=== PATIENT | male | born 1945 | race Caucasian/White ===

== ENCOUNTER 2017-11-30 04:39 | Emergency (ER) | payer OTHER ==
[~2017-11-30] VITALS: Ht 167.6 cm; Wt 75.7 kg
[~2017-11-30 04:39] MED LIST: ALBU0.0939 IH; ASPI81CT89 PO; GLIP10TA3 PO; ISOS10TA9 PO; METO25TA PO; ORE25 PO; POTA10TE31 PO; VAS5 PO
[2017-11-30 04:46] VITALS: BP 145/101
--- NOTE | 2017-11-30 04:54 | NUR ---
PT W/C ASSISTED TO BED 2
--- NOTE | 2017-11-30 04:59 | NUR ---
Dr. Purdy evaluating patient at bedside.
[2017-11-30] MEDS ORDERED: KETOROLAC 60 MG/2 ML VIAL IM ONE (05:00)
--- NOTE | 2017-11-30 05:00 | NUR ---
left hip pain x4 days . DENIES N/V/D; SKIN IS PINK/WARM/DRY;AWAKE, ALERT. LUNGS CLEAR BL; HR EVEN AND REGULAR; PT DENIES ANY FEVER, CP, SOB, OR COUGH AT THIS TIME; PATIENT STATES PAIN OF 10/10 AT THIS TIME; VSS; PATIENT POSITIONED FOR COMFORT; HOB ELEVATED; BEDRAILS UP X2; BED DOWN. ER MD MADE AWARE OF PT STATUS.
--- NOTE | 2017-11-30 05:37 | NUR ---
PT TAKEN TO CT
--- NOTE | 2017-11-30 06:15 | NUR ---
PT STATED PAIN RELIVED.
[2017-11-30 06:52] VITALS: BP 138/90
--- NOTE | 2017-11-30 06:53 | NUR ---
Patient discharged with v/s stable. Written and verbal after care instructions given and explained. Patient alert, oriented and verbalized understanding of instructions. Ambulatory with steady gait. All questions addressed prior to discharge. ID band removed. Patient advised to follow up with PMD. Rx of TRAMADOL AND MOTRIN given. Patient educated on indication of medication including possible reaction and side effects. Opportunity to ask questions provided and answered.
== END 2017-11-30 06:53 | disposition home or self-care (01) ==
LOC: MED 04:39
DX: M54.42 Lumbago with sciatica, left side (principal); R03.0 Elevated blood-pressure reading, without diagnosis of hypertension; E11.9 Type 2 diabetes mellitus without complications; Z98.890 Other specified postprocedural states; Z79.899 Other long term (current) drug therapy
CPT/HCPCS: 72192; 96372; 99284; J1885

== ENCOUNTER 2018-06-24 19:20 | Emergency (ER) | payer OTHER ==
[~2018-06-24] VITALS: Ht 167.6 cm; Wt 73.5 kg
[2018-06-24 19:26] VITALS: BP 158/90
--- NOTE | 2018-06-24 19:30 | NUR ---
PT AMBULATED TO LOBBY WITH VSS.
--- NOTE | 2018-06-24 20:39 | NUR ---
PT AMBULATED TO BED 11.
[2018-06-24] MEDS ORDERED: ALBUTEROL SULFATE/IPRATROPIU 3 ML SOL IH ONE (21:05)
--- NOTE | 2018-06-24 21:05 | NUR ---
73 YO M BIB SELF. AMBULATORY W/STEADY GATE. PT STATES TO HAVE HAD THE FLU FOR THE PAST 2 WEEKS. C/O 5/10 BACK PAIN WHEN BREATHING. WHEEZING PRESENT IN ALL QUADRANTS. PT STATES TO HAVE HAD COUGH FOR PAST 2 WEEKS. HX: DIABETES
--- NOTE | 2018-06-24 21:10 | NUR ---
LAB AT BEDSIDE.
--- NOTE | 2018-06-24 21:17 | NUR ---
X-RAY AT BEDSIDE.
[2018-06-24 21:18] LABS: BASOPHILS # (AUTO) 0.1 K/uL (0.00-0.22); BASOPHILS % (AUTO) 0.9 % (0.0-2.0); EOSINOPHILS # (AUTO) 0.4 K/uL (0-0.4); EOSINOPHILS % (AUTO) 5.6 % (0.0-4.0); HEMATOCRIT 44.1 % (36-52); HEMOGLOBIN 14.5 g/dL (12.0-18.0); LYMPHOCYTES % (AUTO) 24.8 % (20.5-51.1); MEAN CORPUSCULAR HEMOGLOBIN 31 pg (27-31); MEAN CORPUSCULAR HGB CONC 33 g/dL (33-37); MEAN CORPUSCULAR VOLUME 94.3 fL (80-94); MONOCYTES # (AUTO) 0.7 K/uL (0.8-1.0); MONOCYTES % (AUTO) 8.6 % (1.7-9.3); NEUTROPHILS # (AUTO) 4.7 K/uL (1.8-7.7); NEUTROPHILS % (AUTO) 60.1 % (42.2-75.2); PLATELET COUNT (AUTO) 156 K/uL (140-450); RED BLOOD CELL COUNT(AUTO) 4.68 MIL/uL (4.20-6.10); RED CELL DISTRIBUTION WIDTH 14.6 % (11.6-13.7); WHITE BLOOD COUNT (AUTO) 7.9 K/uL (4.8-10.8)
[2018-06-24 21:38] LABS: ANION GAP 11.4 (8-16); CARBON DIOXIDE 27.6 mmol/L (21-32); CHLORIDE 103 mmol/L (98-107); CREATININE 0.8 mg/dL (0.7-1.3); GLUCOSE 175 mg/dL (74-106); SODIUM SERUM 138 mmol/L (136-145); UREA NITROGEN, BLOOD 6 mg/dL (7-18)
--- NOTE | 2018-06-24 21:40 | NUR ---
RT AT BEDSIDE FOR TX.
[2018-06-24 21:44] LABS: ALBUMIN 3.6 g/dL (3.4-5.0); ASPARTATE AMINOTRANSFERASE 64 U/L (15-37); TOTAL BILIRUBIN 0.4 mg/dL (0.0-1.0)
[2018-06-24 22:13] VITALS: BP 141/88
--- NOTE | 2018-06-24 22:14 | NUR ---
Patient discharged with v/s stable. Written and verbal after care instructions given and explained. Patient alert, oriented and verbalized understanding of instructions. Ambulatory with steady gait. All questions addressed prior to discharge. ID band removed. Patient advised to follow up with PMD. Rx of TESSALON PERLES 200MG, LEVAQUIN 500, ALBUTEROL 90MCG given. Patient educated on indication of medication including possible reaction and side effects. Opportunity to ask questions provided and answered.
== END 2018-06-24 22:13 | disposition home or self-care (01) ==
LOC: MED 19:20
DX: J18.1 Lobar pneumonia, unspecified organism (principal); E11.9 Type 2 diabetes mellitus without complications; Z98.890 Other specified postprocedural states; Z79.84 Long term (current) use of oral hypoglycemic drugs; Z79.82 Long term (current) use of aspirin; Z79.899 Other long term (current) drug therapy
CPT/HCPCS: 36415; 71045; 80053; 85025; 93005; 94640; 94760; 99284; J7620

== ENCOUNTER 2018-06-28 22:35 | Inpatient (IN) | payer OTHER ==
[~2018-06-28] VITALS: Ht 167.6 cm; Wt 76.2 kg
[2018-06-28 22:44] VITALS: BP 141/73
--- NOTE | 2018-06-28 23:00 | NUR ---
BIB SELF C/O SOB TONIGHT AND COUGH X2 WEEKS, RR EVEN AND UNLABORED, BL UPPER LOBES WHEEZES NOTED ON EXPIRATION. PT SITTING IN BED, IN NO ACUTE RESPIRATORY DISTRESS, WILL CONTINUE TO MONITOR. PMH DM
--- NOTE | 2018-06-28 23:20 | NUR ---
Dr. Carrington evaluating patient at bedside.
[2018-06-28] MEDS ORDERED: DEXAMETHASONE 10 MG/ML VIAL IVP ONE (23:25)
[2018-06-28] MEDS ORDERED: ALBUTEROL 0.083% 2.5 MG/3 ML NEBU INH ONE (23:25)
[2018-06-28] MEDS ORDERED: IPRATROPIUM 0.02% 0.5 MG/2.5 ML NEBU INH ONE (23:25)
[2018-06-28] MEDS ORDERED: NACL 0.9% 1,000 ML IV ONE (23:25)
--- NOTE | 2018-06-28 23:27 | NUR ---
X-Ray at bedside.
--- NOTE | 2018-06-28 23:32 | NUR ---
Respiratory Therapist at bedside for respiratory intervention.
--- NOTE | 2018-06-28 23:37 | NUR ---
ADMITTING DX: SOB LOC AWAKE AND ALERT RESPONSIVE TO MANAGER HOME HEALTHCARE VERBAL COMMANDS HFW POSITION EDUCATION PROVIDED TO PATIENT WITH ACKNOWLEDGEMENT ON HHN THERAPY AND RESPIRATORY DRUGS ENCOURAGED PATIENT FOR INTERMITTENT DEEP BREATHING DURINGH THERAPY TOLERATED THERAPY WELL WITHOUT INCIDENT
[2018-06-29 00:05] LABS: BASOPHILS # (AUTO) 0.1 K/uL (0.00-0.22); BASOPHILS % (AUTO) 1.2 % (0.0-2.0); EOSINOPHILS # (AUTO) 0.8 K/uL (0-0.4); EOSINOPHILS % (AUTO) 12.1 % (0.0-4.0); HEMOGLOBIN 14.4 g/dL (12.0-18.0); LYMPHOCYTES # (AUTO) 1.5 K/uL (2.0-11.5); LYMPHOCYTES % (AUTO) 24.3 % (20.5-51.1); MEAN CORPUSCULAR HEMOGLOBIN 31 pg (27-31); MEAN CORPUSCULAR HGB CONC 33 g/dL (33-37); MEAN CORPUSCULAR VOLUME 94.2 fL (80-94); MONOCYTES # (AUTO) 0.5 K/uL (0.8-1.0); MONOCYTES % (AUTO) 8.4 % (1.7-9.3); NEUTROPHILS # (AUTO) 3.4 K/uL (1.8-7.7); PLATELET COUNT (AUTO) 147 K/uL (140-450); RED BLOOD CELL COUNT(AUTO) 4.68 MIL/uL (4.20-6.10); WHITE BLOOD COUNT (AUTO) 6.3 K/uL (4.8-10.8)
[2018-06-29 00:13] LABS: ANION GAP 12.7 (8-16); CARBON DIOXIDE 30.4 mmol/L (21-32); CHLORIDE 98 mmol/L (98-107); GLUCOSE 291 mg/dL (74-106); POTASSIUM 4.1 mmol/L (3.5-5.1); SODIUM SERUM 137 mmol/L (136-145); UREA NITROGEN, BLOOD 19 mg/dL (7-18)
[2018-06-29 00:19] LABS: ALBUMIN 3.8 g/dL (3.4-5.0); ASPARTATE AMINOTRANSFERASE 32 U/L (15-37); TOTAL BILIRUBIN 0.9 mg/dL (0.0-1.0)
[2018-06-29] MEDS ORDERED: VANCOMYCIN 1,000 MG in DEXTROSE 5% 250 ML IV ONE (01:15)
[2018-06-29] MEDS ORDERED: PIPERACILLIN/TAZOBACTAM 3.375 GM in DEXTROSE 5% 50 ML IV ONE (01:15)
[2018-06-29] MEDS ORDERED: VANCOMYCIN 1,000 MG VIAL ONE (01:58)
[2018-06-29] MEDS ORDERED: PIPERACILLIN/TAZOBACTAM 3.375 GM VIAL IV ONE (01:58)
--- NOTE | 2018-06-29 02:10 | NUR ---
PT IN BED , ON PHONE, VSS, PENDING ADMISSION .
[2018-06-29] MEDS ORDERED: ACETAMINOPHEN 325 MG TAB PO PRN (03:05)
[2018-06-29] MEDS ORDERED: ONDANSETRON 4 MG/2 ML VIAL IM/IVP PRN (03:05)
[2018-06-29] MEDS ORDERED: HYDROcodone/APAP 7.5/325 MG 1 TAB PO PRN (03:05)
[2018-06-29] MEDS ORDERED: DOCUSATE SODIUM 100 MG GELCAP PO PRN (03:05)
--- NOTE | 2018-06-29 03:30 | NUR ---
Patient will be admitted to care of DR CARTER . Admited to TELE. Will go to [id number]. Belongings list completed. Report to ANA PAULA CORTES.
--- NOTE | 2018-06-29 03:30 | NUR ---
RECEIVED REPORT FROM DATA MANAGEMENTANA PAULA VUONG FOR CONTINUITY OF CARE. PT IS A/OX4, ON ROOM AIR, JAPANESE SPEAKING. PT IS ABLE TO MAKE NEEDS KNOWN, ABLE TO FOLLOW COMMANDS. PT AMBULATES WITH CANE, AND SKIN IS INTACT. PT HAS A 18G IV TO LEFT FOREARM, ASYMPTOMATIC AND INTACT. DISCUSSED PLAN OF CARE WITH PT. OBTAINED MRSA SWAB AND SENT TO LAB. VITAL SIGNS WITHIN NORMAL LIMITS. PT STABLE, DENIES PAIN, NO SIGNS OF DISTRESS NOTED AT THIS TIME. PT POSITIONED FOR COMFORT. BED IN LOWEST POSITION, BED ALARM ON. CALL LIGHT WITHIN REACH, WILL CONTINUE TO MONITOR.
[2018-06-29 03:55] LABS: APPEARANCE,URINE CLEAR (CLEAR); BILIRUBIN,URINE NEGATIVE (NEGATIVE); BLOOD, URINE NEGATIVE (NEGATIVE); COLOR,URINE YELLOW (YELLOW); LEUKOCYTE ESTERASE ,URINE NEGATIVE (NEGATIVE); NITRITE, URINE NEGATIVE (NEGATIVE); PH,URINE 6.5 (5.0-9.0); UGLUCOSE 3+ (NEGATIVE)
[2018-06-29 03:56] LABS: MAGNESIUM 1.7 mg/dL (1.8-2.4); PHOSPHORUS 3.1 mg/dL (2.5-4.9); THYROID STIMULATING HORMONE 1.5 uIU/mL (0.34-3.74)
[2018-06-29 03:56] LABS: RBC,URINE 0-5 (RARE) /HPF (0-5); WBC,URINE 0-5 (RARE) /HPF (0-5)
[2018-06-29 04:06] LABS: PROTHROMBIN TIME 10.4 secs (10.8-13.4)
[2018-06-29] MEDS ORDERED: PROMETH/CODEINE 6.25-10MG/5ML 5 ML UDC PO PRN (04:15)
[2018-06-29] MEDS ORDERED: DEXTROSE 50% 50 ML SYR IVP PRN (04:15)
[2018-06-29] MEDS ORDERED: MAGNESIUM OXIDE 400 MG TAB PO SCH (04:25)
[2018-06-29 04:30] VITALS: BP 133/81
[2018-06-29] MEDS: NACL 0.9% 1,000 ML IV SCH ×2 (05:45→17:22)
--- NOTE | 2018-06-29 05:45 | NUR ---
PT C/O THROAT PAIN 12/07 AND REQUESTED "INJECTION FOR PAIN." OFFERED NORCO FOR PAIN LEVEL ORDERED AND PT TOOK IT. PT TOLERATED WELL.
[2018-06-29] MEDS: BLOOD GLUCOSE MONITORING 1 DEV DEV FS SCH ×4 (06:08→21:08)
[2018-06-29] MEDS: INSULIN LISPRO SLIDING SCALE 100 UNITS/ML VIAL SUBQ PRN ×4 (06:09→21:09)
--- NOTE | 2018-06-29 06:15 | NUR ---
ADMINISTERED 10 UNITS OF HUMALOG INSULIN COVERAGE FOR BLOOD SUGAR 358, PT TOLERATED WELL.
--- NOTE | 2018-06-29 07:05 | NUR ---
ENDORSED PT TO RN SITAL FOR CONTINUITY OF CARE. PT IN STABLE CONDITION.
[2018-06-29 07:06] LABS: BASOPHILS % (AUTO) 0.6 % (0.0-2.0); EOSINOPHILS % (AUTO) 0.2 % (0.0-4.0); HEMATOCRIT 41.7 % (36-52); HEMOGLOBIN 13.8 g/dL (12.0-18.0); LYMPHOCYTES # (AUTO) 0.5 K/uL (2.0-11.5); LYMPHOCYTES % (AUTO) 7.9 % (20.5-51.1); MEAN CORPUSCULAR HEMOGLOBIN 31 pg (27-31); MEAN CORPUSCULAR HGB CONC 33 g/dL (33-37); MEAN CORPUSCULAR VOLUME 94.5 fL (80-94); MONOCYTES # (AUTO) 0.1 K/uL (0.8-1.0); MONOCYTES % (AUTO) 1.1 % (1.7-9.3); NEUTROPHILS # (AUTO) 5.3 K/uL (1.8-7.7); NEUTROPHILS % (AUTO) 90.2 % (42.2-75.2); PLATELET COUNT (AUTO) 127 K/uL (140-450); RED BLOOD CELL COUNT(AUTO) 4.42 MIL/uL (4.20-6.10); RED CELL DISTRIBUTION WIDTH 14.6 % (11.6-13.7); WHITE BLOOD COUNT (AUTO) 5.8 K/uL (4.8-10.8)
--- NOTE | 2018-06-29 07:06 | NUR ---
RECEIVED REPORT FROM PM NURSE AT BEDSIDE. PT UP AND SITTING ON HIS BED. PT NEW ZEALANDER SPEAKING ONLY, UNDERSTAND BELARUSIAN SLIGHTLY. PT WALKS WITH AID OF CANE. PLACED CALL LIGHT WITHIN PT REACH. INFORMED TO USE CA,L LIGHT FOR ANY HELP. PT HAS IV ACCESS ON HIS LEFT HAND 18 G, IVF INFUSING AT 70 ML/HR. TOLERATING WELL. UPDATED BOARD AND INTRODUCED SELF. SPECIMEN CUP AT BEDSIDE. INFORMED TO COLLECT THE SPUTUM WHENEVER PT CAN. VERBALIZED UNDERSTANDING. WILL CONTINUE TO MONITOR PT.
[2018-06-29 07:13] LABS: ANION GAP 15.1 (8-16); CARBON DIOXIDE 24.1 mmol/L (21-32); CHLORIDE 99 mmol/L (98-107); CREATININE 0.9 mg/dL (0.7-1.3); GLUCOSE 374 mg/dL (74-106); POTASSIUM 4.2 mmol/L (3.5-5.1); SODIUM SERUM 134 mmol/L (136-145); UREA NITROGEN, BLOOD 16 mg/dL (7-18)
[2018-06-29 08:00] VITALS: BP 114/69
[2018-06-29] MEDS ORDERED: metFORMIN 850 MG TAB PO SCH (08:00)
[2018-06-29] MEDS: BUDESONIDE 0.5 MG/2 ML NEBU INH SCH ×2 (08:12→19:35)
[2018-06-29] MEDS: ALBUTEROL SULFATE/IPRATROPIU 3 ML SOL IH SCH ×3 (08:12→19:35)
[2018-06-29] MEDS ORDERED: methylPREDNISolone SS 125 MG/2 ML VIAL IVP SCH (08:20)
[2018-06-29] MEDS ORDERED: ALBUTEROL SULFATE/IPRATROPIU 3 ML SOL IH PRN (08:20)
[2018-06-29] MEDS: LACTOBACILLUS RHAMNOSUS GG 1 EACH CAP PO SCH (08:55)
[2018-06-29] MEDS: ASPIRIN 81 MG TAB.CHEW PO SCH (08:55)
[2018-06-29] MEDS: ATORVASTATIN 20 MG TAB PO SCH (08:56)
[2018-06-29] MEDS ORDERED: metFORMIN 500 MG TAB PO SCH (08:59)
[2018-06-29] MEDS ORDERED: PANTOPRAZOLE 40 MG TABEC PO SCH (09:00)
[2018-06-29] MEDS ORDERED: ENALAPRIL 5 MG TAB PO SCH (09:00)
[2018-06-29] MEDS ORDERED: HYDROCHLOROTHIAZIDE 25 MG TAB PO SCH (09:00)
[2018-06-29] MEDS ORDERED: glipiZIDE 10 MG TAB PO SCH (09:00)
[2018-06-29] MEDS ORDERED: ISOSORBIDE DINITRATE 10 MG TAB PO SCH (09:00)
[2018-06-29] MEDS ORDERED: METOPROLOL 25 MG TAB PO SCH (09:00)
--- NOTE | 2018-06-29 09:25 | NUR ---
PATIENT HAS BEEN SCREENED AND CATEGORIZED HIGH NUTRITION RISK. PATIENT WILL BE SEEN WITHIN 1-2 DAYS OF ADMISSION. 06/29/18 06/30/[address]
[2018-06-29] MEDS: PIPER/TAZO 3.375GM/D5W PREMIX 50 ML IV SCH ×3 (09:45→20:43)
--- NOTE | 2018-06-29 09:48 | NUR ---
ADMINISTERED MEDS TO PT ORDERED. TOLERATED WELL. NO SIGN OF DISTRESS NOTED. CALL LIGHT WITHI PT REACH. WILL CONTINUE TO MONITOR PT.
[2018-06-29 12:00] VITALS: BP 115/72
--- NOTE | 2018-06-29 12:00 | NUR ---
CHECKED ON PT. SITTING ON HIS BED. HAS COUGHING . RESIDENT NOTIFIED , WILL PLACE ORDER FOR COUGHING MEDS. PT DENIES ANY PAIN. VS NOTED, BS 369 NOTED, WILL REQUIRE INSULIN COVERAGE. CALL LIGHT WITHIN PT REACH. INFORMED HIM TO USE CALL LIGHT FOR ANY HELP. WILL CONTINUE TO MONITOR PT.
[2018-06-29] MEDS ORDERED: guaiFENesin/CODEINE 100/10MG 5 ML UDC PO PRN (12:45)
[2018-06-29] MEDS: methylPREDNISolone SS 125 MG/2 ML VIAL IVP SCH ×2 (13:20→20:43)
--- NOTE | 2018-06-29 15:07 | NUR ---
CHECKED ON PT. SITTING ON HIS BED. STATES HAS MILD COUGH, FEELING BETTER THAN BEFORE. NO SIGN OF DISTRESS NOTED. CALL LIGHT WITHIN PT REACH. WILL CONTINUE TO MONITOR PT.
[2018-06-29 16:00] VITALS: BP 117/70
[2018-06-29] MEDS: metFORMIN 500 MG TAB PO SCH (16:56)
--- NOTE | 2018-06-29 18:24 | NUR ---
CHECKED ON PT. LYING ON HIS BED, WATCHING TV. CALL LIGHT WITHIN PT REACH. INFORMED TO USE CALL LIGHT FOR ANY HELP. WILL CONTINUE TO MONITOR PT.
--- NOTE | 2018-06-29 19:21 | NUR ---
ENDORSED PT TO PM NURSE AT BESIDE. PT IN STABLE CONDITION.
--- NOTE | 2018-06-29 19:22 | NUR ---
RECEIVED REPORT FROM ANA PAULA CHEUNG FOR CONTINUITY OF CARE. PT IS A/OX4, ON ROOM AIR, BENINESE SPEAKING. PT IS ABLE TO MAKE NEEDS KNOWN, ABLE TO FOLLOW COMMANDS. PT AMBULATES WITH CANE, AND SKIN IS INTACT. PT HAS A 18G IV TO LEFT FOREARM, ASYMPTOMATIC AND INTACT. DISCUSSED PLAN OF CARE WITH PT. VITAL SIGNS WITHIN NORMAL LIMITS. PT STABLE, DENIES PAIN, NO SIGNS OF DISTRESS NOTED AT THIS TIME. PT POSITIONED FOR COMFORT. BED IN LOWEST POSITION, BED ALARM ON. CALL LIGHT WITHIN REACH, WILL CONTINUE TO MONITOR.
[2018-06-29 20:00] VITALS: BP 96/63
--- NOTE | 2018-06-29 20:48 | NUR ---
ADMINISTERED SCHEDULED MEDICATIONS, PT TOLERATED WELL.
--- NOTE | 2018-06-29 22:12 | NUR ---
PT RESTING, PT STATES ALL HIS NEEDS ARE MET AT THIS TIME. NO SIGNS OF DISTRESS NOTED, WILL CONTINUE TO MONITOR.
[2018-06-30] VITALS: BP 99/60
--- NOTE | 2018-06-30 | NUR ---
VITAL SIGNS WITHIN NORMAL LIMITS. PT STABLE, DENIES PAIN, NO SIGNS OF DISTRESS NOTED AT THIS TIME. PT POSITIONED FOR COMFORT. BED IN LOWEST POSITION, BED ALARM ON. CALL LIGHT WITHIN REACH, WILL CONTINUE TO MONITOR.
--- NOTE | 2018-06-30 01:55 | NUR ---
PT IS SHORT OF BREATH AND WHEEZING IS HEARD IN LUNGS. CALLED RT AND PUT PT ON O2. PT SATURATION WAS 95%, SO I ASKED DR DOE IF IT IS OKAY TO KEEP O2 ON BECAUSE PT IS REQUESTING IT. PT SATURATION IS OK BUT IT MAKES HIM FEEL BETTER TO HAVE THE O2, DR DOE SAID IT WAS OK. RT MOISE WILL GIVE PT BREATHING TREATMENT AND THEN PUT HIM ON 0.5L/MIN OF O2.
--- NOTE | 2018-06-30 02:02 | NUR ---
CALLED TO BEDSIDE WITH PT SOB. RN PLACED PT ON 0.5L NC, PT SPO2 97 WITH NC. PT WHEEZING UPON ARRIVAL. GAVE PT PRN TX. PT ELIZABETH TX WELL. WILL CONTINUE TO MONITOR
[2018-06-30 04:00] VITALS: BP 110/60
[2018-06-30] MEDS: methylPREDNISolone SS 125 MG/2 ML VIAL IVP SCH (05:24)
[2018-06-30] MEDS: PIPER/TAZO 3.375GM/D5W PREMIX 50 ML IV SCH (05:25)
--- NOTE | 2018-06-30 05:30 | NUR ---
ADMINISTERED SCHEDULED MEDICATIONS, PT TOLERATED WELL.
[2018-06-30] MEDS: INSULIN LISPRO SLIDING SCALE 100 UNITS/ML VIAL SUBQ PRN ×4 (06:16→20:45)
[2018-06-30] MEDS: BLOOD GLUCOSE MONITORING 1 DEV DEV FS SCH ×4 (06:16→20:41)
[2018-06-30] MEDS ORDERED: PROMETH/CODEINE 6.25-10MG/5ML 5 ML UDC PO PRN (06:25)
[2018-06-30] MEDS: ALBUTEROL SULFATE/IPRATROPIU 3 ML SOL IH SCH ×3 (06:43→19:38)
[2018-06-30] MEDS: BUDESONIDE 0.5 MG/2 ML NEBU INH SCH ×2 (06:53→19:38)
--- NOTE | 2018-06-30 07:29 | NUR ---
ENDORSED PT BACK TO RN SITAL FOR CONTINUITY OF CARE. PT IN STABLE CONDITION.
--- NOTE | 2018-06-30 07:30 | NUR ---
RECEIVED REPORT FROM PM NURSE AT BEDSIDE. PT AWAKE AND SITTING ON HIS BED WATCHING TV. DENIES ANY DISCOMFORT AND PAIN. PT ON 0.5 LPM O2, PT STATES HE IS COMFORTABLE WITH IT FOR BREATHING. USES BEDSIDE URINAL. IV SITE INTACT AND PATENT. IVF INFUSING WELL. CALL LIGHT WITHIN PT REACH. WILL CONTINUE TO MONITOR PT.
[2018-06-30] MEDS: NACL 0.9% 1,000 ML IV SCH ×2 (07:40→21:58)
[2018-06-30 07:59] LABS: HEMATOCRIT 38.9 % (36-52); HEMOGLOBIN 12.8 g/dL (12.0-18.0); LYMPHOCYTES # (AUTO) 0.8 K/uL (2.0-11.5); LYMPHOCYTES % (AUTO) 5.2 % (20.5-51.1); MEAN CORPUSCULAR HEMOGLOBIN 31 pg (27-31); MEAN CORPUSCULAR HGB CONC 33 g/dL (33-37); MEAN CORPUSCULAR VOLUME 94.6 fL (80-94); MONOCYTES # (AUTO) 0.2 K/uL (0.8-1.0); MONOCYTES % (AUTO) 1.2 % (1.7-9.3); NEUTROPHILS # (AUTO) 14.5 K/uL (1.8-7.7); NEUTROPHILS % (AUTO) 93.6 % (42.2-75.2); PLATELET COUNT (AUTO) 141 K/uL (140-450); RED BLOOD CELL COUNT(AUTO) 4.11 MIL/uL (4.20-6.10); RED CELL DISTRIBUTION WIDTH 14.7 % (11.6-13.7); WHITE BLOOD COUNT (AUTO) 15.5 K/uL (4.8-10.8)
[2018-06-30 08:00] VITALS: BP 96/62
[2018-06-30 08:00] LABS: ANION GAP 15.4 (8-16); CARBON DIOXIDE 23.4 mmol/L (21-32); CHLORIDE 101 mmol/L (98-107); GLUCOSE 302 mg/dL (74-106); POTASSIUM 3.8 mmol/L (3.5-5.1); SODIUM SERUM 136 mmol/L (136-145); UREA NITROGEN, BLOOD 25 mg/dL (7-18)
[2018-06-30 08:12] LABS: PHOSPHORUS 3.2 mg/dL (2.5-4.9)
[2018-06-30 08:18] LABS: T4 (THYROXINE) 7.6 ug/dL (4.5-12.0)
[2018-06-30] MEDS: ATORVASTATIN 20 MG TAB PO SCH (08:32)
[2018-06-30] MEDS: FAMOTIDINE 20 MG TAB PO SCH ×2 (08:32→21:01)
[2018-06-30] MEDS: ASPIRIN 81 MG TAB.CHEW PO SCH (08:32)
[2018-06-30] MEDS: metFORMIN 500 MG TAB PO SCH ×2 (08:32→17:15)
[2018-06-30] MEDS: LACTOBACILLUS RHAMNOSUS GG 1 EACH CAP PO SCH (08:33)
[2018-06-30] MEDS: INSULIN LANTUS 100 UNITS/ML 10 ML VIAL SUBQ SCH (08:38)
[2018-06-30] MEDS: guaiFENesin DM 200/20 MG-10 ML 10 ML UDC PO PRN ×2 (08:42→21:01)
[2018-06-30] MEDS: FLUTICASONE NASAL 50 MCG/ACTUATION 16 GM BTL NS SCH (08:43)
--- NOTE | 2018-06-30 08:46 | NUR ---
ADMINISTERED MEDS TO PT ORDERED. PT TOLERATED WELL. PT ADMINISTERED COUGH MEDS AND NASAL SPRAY ORDERED. NO SIGN OF DISTRESS NOTED. WILL CONTINUE TO MONITOR PT.
[2018-06-30] MEDS: BENZOCAINE/MENTHOL 1 LOZ MM PRN ×2 (11:35→21:01)
[2018-06-30 12:00] VITALS: BP 114/75
[2018-06-30] MEDS: methylPREDNISolone SS 40 MG/ML VIAL IVP SCH ×2 (13:30→21:01)
--- NOTE | 2018-06-30 13:34 | NUR ---
ADMINISTERED MEDS TO PT ORDERED. TOLERATED WELL. PT LYING ON BED, WATCHING TV. NO SIGN OF DISTRESS, NO SOB, TOLERATING WELL. NOT COUGHING AT THIS TIME. CALL LIGHT WITHIN PT REACH. WILL CONTINUE TO MONITOR PT.
[2018-06-30 16:00] VITALS: BP 100/63
--- NOTE | 2018-06-30 17:00 | NUR ---
CHECKED ON PT. BS 245, ADMINISTERED INSULIN PER SLIDING SCALE. NO SIGN OF DISTRESS NOTED. VS NORMAL, HAS 02 SAT 95% VON RA, TOLERATING WELL. PT HAS BEEN COMPLIANCE WITH PRACTICING IS, NO COUGHING FOR PT. CALL LIGHT WITHIN PT REACH. WILL CONTINUE TO MONITOR PT.
--- NOTE | 2018-06-30 17:24 | NUR ---
06/30/18 RD INITIAL ASSESSMENT COMPLETED PLEASE REFER TO NUTRITION PROGRESS NOTE UNDER CARE ACTIVITY FOR ESTIMATED NUTRITION NEEDS. RD RECOMMENDATIONS: 1. RECOMMEND CONTINUE 60G CCHO DIET; SUFFICIENT TO MEET ESTIMATED NEEDS 2. F/U 3-5 DAYS; MODERATE RISK IRLANDA JANE MBA, RD
--- NOTE | 2018-06-30 19:05 | NUR ---
ENDORSED PT TO PM NURSE AT BEDSIDE. PT IN STABLE CONDITION.
--- NOTE | 2018-06-30 19:06 | NUR ---
RECEIVED REPORT FROM PM NURSE AT BEDSIDE. PT AWAKE AND SITTING ON HIS BED WATCHING TV. DENIES ANY DISCOMFORT AND PAIN. PT ON ROOM AIR. USES BEDSIDE URINAL. IV SITE INTACT AND PATENT. IVF INFUSING WELL. CALL LIGHT WITHIN PT REACH. WILL CONTINUE TO MONITOR PT.
--- NOTE | 2018-06-30 19:40 | NUR ---
RECEIVED REPORT FROM LAB THAT 1ST SPUTUM COLLECTION WAS NOT VIABLE AND TO COLLECT ANOTHER SPUTUM SAMPLE. WILL CARRY IT OUT.
--- NOTE | 2018-06-30 19:47 | NUR ---
PATIENT INSTRUCTED ON SPUTUM INDUCTION. PATIENT UNDERSTANDS AND CUP LEFT TA BEDSIDE WITHIN REACH BY NURSE BRIGITTE.
[2018-06-30 20:00] VITALS: BP 112/63
--- NOTE | 2018-06-30 21:10 | NUR ---
COLLECTED SPUTUM SENT TO LAB
[2018-07-01] VITALS: BP 115/65
--- NOTE | 2018-07-01 00:30 | NUR ---
RECEIVED PT FROM BRIGITTE RN PT IS AAOX4 AMBULATORY ON TELEMETRY SR NOT SOB NOTED NOT FEVER IV ON LEFT ARLM INFUSING WELL INITIAL ASSESSMENT DONE
[2018-07-01 04:00] VITALS: BP 100/50
--- NOTE | 2018-07-01 04:00 | NUR ---
SPONGE BATH GIVEN LINEN CHANGED ON TELE SR NOT DISTRESS NOTED
[2018-07-01] MEDS: methylPREDNISolone SS 40 MG/ML VIAL IVP SCH (04:54)
[2018-07-01] MEDS: NACL 0.9% 1,000 ML IV SCH (04:58)
--- NOTE | 2018-07-01 07:00 | NUR ---
REPORT GIVEN TO AUSTIN GOSS FOR CONTINUITY OF CARE PT SLEEPING SR ON TELEMETRY
--- NOTE | 2018-07-01 07:05 | NUR ---
RECEIVED REPORT FROM CHARGE NURSE OMID. NO CHANGE OF CONDITION IN PT. PT SITTING ON HIS BED, AOX4. HAS URINAL AT HIS BEDSIDE. POSSIBLE DISCHARGE TODAY. PT DENIES ANY DISCOMFORT OR DISTRESS.. ALL SAFETY MEASURE IN PLACE. WILL CONTINUE TO MONITOR PT.
[2018-07-01 07:08] LABS: HEMATOCRIT 39.8 % (36-52); LYMPHOCYTES # (AUTO) 0.6 K/uL (2.0-11.5); LYMPHOCYTES % (AUTO) 4.7 % (20.5-51.1); MEAN CORPUSCULAR HEMOGLOBIN 31 pg (27-31); MEAN CORPUSCULAR HGB CONC 33 g/dL (33-37); MEAN CORPUSCULAR VOLUME 94.8 fL (80-94); MONOCYTES # (AUTO) 0.3 K/uL (0.8-1.0); NEUTROPHILS # (AUTO) 11.8 K/uL (1.8-7.7); NEUTROPHILS % (AUTO) 93.3 % (42.2-75.2); PLATELET COUNT (AUTO) 134 K/uL (140-450); RED CELL DISTRIBUTION WIDTH 15.1 % (11.6-13.7); WHITE BLOOD COUNT (AUTO) 12.7 K/uL (4.8-10.8)
[2018-07-01 07:17] LABS: ANION GAP 15.3 (8-16); CARBON DIOXIDE 25.5 mmol/L (21-32); CHLORIDE 101 mmol/L (98-107); CREATININE 0.8 mg/dL (0.7-1.3); GLUCOSE 313 mg/dL (74-106); POTASSIUM 4.8 mmol/L (3.5-5.1); SODIUM SERUM 137 mmol/L (136-145); UREA NITROGEN, BLOOD 25 mg/dL (7-18)
[2018-07-01 07:31] LABS: PHOSPHORUS 3.7 mg/dL (2.5-4.9)
--- NOTE | 2018-07-01 07:49 | NUR ---
AWAKE AND ALERT RESPONSIVE TO COMPRESSOR STATION ENGINEER VERBALLY RESPONSIVE NO SOB NOTED AT THIS TIME PATIENT WITH BREAKFAST TRAY COMPRESSOR STATION ENGINEER TO ATTEMPT HHN THERAPY AT A LATERTIME
[2018-07-01 07:58] VITALS: BP 109/64
[2018-07-01] MEDS: ALBUTEROL SULFATE/IPRATROPIU 3 ML SOL IH SCH (08:03)
[2018-07-01] MEDS: BUDESONIDE 0.5 MG/2 ML NEBU INH SCH (08:03)
[2018-07-01] MEDS: BLOOD GLUCOSE MONITORING 1 DEV DEV FS SCH ×2 (08:12→12:10)
[2018-07-01] MEDS: INSULIN LISPRO SLIDING SCALE 100 UNITS/ML VIAL SUBQ PRN ×2 (08:13→12:13)
[2018-07-01] MEDS: ATORVASTATIN 20 MG TAB PO SCH (08:50)
[2018-07-01] MEDS: metFORMIN 500 MG TAB PO SCH (08:50)
[2018-07-01] MEDS: LACTOBACILLUS RHAMNOSUS GG 1 EACH CAP PO SCH (08:50)
[2018-07-01] MEDS: ASPIRIN 81 MG TAB.CHEW PO SCH (08:50)
[2018-07-01] MEDS: FAMOTIDINE 20 MG TAB PO SCH (08:51)
[2018-07-01] MEDS: FLUTICASONE NASAL 50 MCG/ACTUATION 16 GM BTL NS SCH (08:51)
[2018-07-01] MEDS: INSULIN LANTUS 100 UNITS/ML 10 ML VIAL SUBQ SCH (08:53)
[2018-07-01] MEDS ORDERED: ENALAPRIL 2.5 MG TAB PO SCH (09:00)
[2018-07-01] MEDS ORDERED: ATORVASTATIN 20 MG TAB PO SCH (09:00)
--- NOTE | 2018-07-01 09:00 | NUR ---
ADMINISTERED MEDS TO PT ORDERED. TOLERATED WELL. PT AWAKE AND ALERT. NO SIGN OF DISTRESS NOTED. HAS ALL SAFETY MEASURE IN PLACE. WILL CONTINUE TO MONITOR PT.
--- NOTE | 2018-07-01 10:43 | NUR ---
CHECKED ON PT. LYING ON HIS BED, AWAKE. ASKING ABOUT HIS DISCHARGE PLAN. INFORMED HIM THAT NO DC ORDER YET FRO MD. WILL KNOW ONCE DISCHARGE ORDER IS UP. ASKED HIM TO TAKE OFF O2, WILL MONITOR HIS TOLERANCE AT RA. NO SIGN OF DISTRESSED NOTED. WILL CONTINUE TO MONITOR PT.
[2018-07-01] MEDS ORDERED: [UNRECOGNIZED DRUG - CODE] MC (10:54)
[2018-07-01] MEDS ORDERED: GLUC-321 MC (10:54)
[2018-07-01] MEDS ORDERED: VAS2.5 PO (10:54)
[2018-07-01] MEDS ORDERED: LANC-947 MC (10:54)
[2018-07-01] MEDS ORDERED: FLONAS NS (10:54)
[2018-07-01] MEDS ORDERED: METF500T PO (10:54)
[2018-07-01] MEDS ORDERED: DEXT5SYR3 PO (10:54)
[2018-07-01] MEDS ORDERED: METH4TAB3 PO (10:54)
[2018-07-01] MEDS ORDERED: WAST1DEV2 MC (10:54)
[2018-07-01] MEDS ORDERED: LANTUS SUBQ (10:54)
[2018-07-01] MEDS ORDERED: BLOO1EAC40 MC (11:04)
[2018-07-01] MEDS ORDERED: ALBU0.0912 INH (11:09)
[2018-07-01 12:15] VITALS: BP 110/66
--- NOTE | 2018-07-01 12:54 | NUR ---
DISCHARGE INSTRUCTION PROVIDED TO PT. VERBALIZED UNDERSTANDING. INFORMED THAT DISCHARGE INSTRUCTION ARE PROVIDED IN [facility]. PRESCRIPTION GIVEN , INFORMED HIM TO VISIT PHARMACY AND GET THE MEDS PRESCRIBED . VERBALIZED UNDERSTANDING. WAITING ON RIDE , STATES WILL BE AROUND 14OO. WILL DC IV LINE ONCE PTS RIDE ARRIVES.
[2018-07-01] MEDS: BENZOCAINE/MENTHOL 1 LOZ MM PRN (12:59)
[2018-07-01] MEDS ORDERED: methylPREDNISolone SS 40 MG/ML VIAL IVP SCH (13:00)
--- NOTE | 2018-07-01 14:10 | NUR ---
PT LEFT HOME WITH HIS SON. PT STABLE AND ABLE TO AMBULATE WITH HIS CANE. ALL BELONGINGS TAKEN WITH PT. ALL PRESCRIPTION PROVIDED ALONG WITH THE DISCHARGE PACKET. PT TO FOLLOW UP WITH APPOINTMENT MADE. PT WALKED WITH HIS SON .
--- NOTE | 2018-07-01 16:00 | NUR ---
PT FORGOT HIS HOME MEDS AT PHARMACY. CONTACT AT HOME AND ON SON CELL PHONE. UNABLE TO REACH. CHARGE NURSE NOTIFIED. PHARMACIST CONFIRMS THE MEDS AT PHARMACY. PICKED UP FROM PHARMACY. WILL CONVEY INFORMATION TO NIGHT CHARGE NURSE SO THAT MEDS CAN BE DELIVERED TO THE PERSON ONCE THEY COME TO [place] PICKLER THE MEDS AT HOSPITAL.
--- NOTE | 2018-07-01 19:30 | NUR ---
SHIPPING CLERK PACKING AWARE OF PT MEDS AT NURSING STATION. WILL CALL PT AND FAMILY AND PROVIDE MEDS WHEN PT COME TO RECEIVE MEDS AT HOSPITAL.
== END 2018-07-01 14:10 | disposition home health service (06) | DRG 190 ==
LOC: MED 22:35 → MTU 06-29 03:07
PROVIDERS: ADMIT General Practice; ATTEND General Practice
DX: J44.1 Chronic obstructive pulmonary disease with (acute) exacerbation (principal); N17.0 Acute kidney failure with tubular necrosis; J20.9 Acute bronchitis, unspecified; J44.0 Chronic obstructive pulmonary disease with (acute) lower respiratory infection; I10 Essential (primary) hypertension; E11.65 Type 2 diabetes mellitus with hyperglycemia; E78.5 Hyperlipidemia, unspecified; K21.9 Gastro-esophageal reflux disease without esophagitis; E83.42 Hypomagnesemia; J30.9 Allergic rhinitis, unspecified; E11.21 Type 2 diabetes mellitus with diabetic nephropathy; K74.60 Unspecified cirrhosis of liver; I25.10 Atherosclerotic heart disease of native coronary artery without angina pectoris; K80.20 Calculus of gallbladder without cholecystitis without obstruction; D69.6 Thrombocytopenia, unspecified; E83.51 Hypocalcemia; R91.1 Solitary pulmonary nodule; N28.89 Other specified disorders of kidney and ureter; T38.0X5A Adverse effect of glucocorticoids and synthetic analogues, initial encounter; Z79.82 Long term (current) use of aspirin; Z79.899 Other long term (current) drug therapy; Z79.84 Long term (current) use of oral hypoglycemic drugs; Z95.1 Presence of aortocoronary bypass graft; Z87.891 Personal history of nicotine dependence; Y92.89 Other specified places as the place of occurrence of the external cause; Z68.27 Body mass index [BMI] 27.0-27.9, adult
CPT/HCPCS: 36415; 36600; 71045; 71250; 80048; 80053; 81001; 82803; 82948; 83036; 83605; 83735; 83880; 84100; 84436; 84443; 84479; 85025; 85610; 85730; 87040; 87070; 87081; 87205; 87804; 93005; 93925; 93970; 94640; 99285; J1100; J1815; J2543; J2920; J2930; J3370; J7030; J7613; J7620; J7626; J7644; Q0092

== ENCOUNTER 2018-11-03 03:50 | Emergency (ER) | payer OTHER ==
[~2018-11-03] VITALS: Ht 167.6 cm; Wt 78.0 kg
[~2018-11-03 03:50] MED LIST changes: +ALBU0.0912 INH; -ALBU0.0939 IH; +ASPI-1718 PO; -ASPI81CT89 PO; +BLOO1EAC40 MC; +DEXT5SYR3 PO; +FLONAS NS; -GLIP10TA3 PO; +GLUC-321 MC; +LANC-947 MC; +LANTUS SUBQ; +METF500T PO; +METH4TAB3 PO; +VAS2.5 PO; -VAS5 PO; +WAST1DEV2 MC; +[UNRECOGNIZED DRUG - CODE] MC
--- NOTE | 2018-11-03 03:58 | NUR ---
73/M PRESENTS TO ED, C/O SOB AND PRODUCTIVE COUGH X1 WEEK. PT DENIES FEVER, CP, ABD PAIN, N/V. PT AOX4, GCS 15, SKIN NORMAL WARM AND DRY, SPO2 97% ON RA, RR 14 EVEN AND MILDLY LABORED. LUNG SOUNDS WHEEZE BL. HR EVEN AND REGULAR. BS ACTIVE X4, ABD SOFT ROUND LARGE AND DISTENDED. HX DM, HTN, HIGH CHOLESTEROL VALVE REPLACEMENT SURGERY
[2018-11-03 04:00] VITALS: BP 143/86
--- NOTE | 2018-11-03 04:00 | NUR ---
DR MOLINA AT BEDSIDE
[2018-11-03] MEDS ORDERED: ALBUTEROL SULFATE/IPRATROPIU 3 ML SOL IH ONE ×2 (04:05→05:00)
--- NOTE | 2018-11-03 04:10 | NUR ---
RT AT BEDSIDE
--- NOTE | 2018-11-03 04:24 | NUR ---
XR AT BEDSIDE
[2018-11-03 04:35] VITALS: BP 125/68
--- NOTE | 2018-11-03 04:58 | NUR ---
DR. MOLINA AT BEDSIDE.
[2018-11-03] MEDS ORDERED: predniSONE 20 MG TAB PO ONE (05:00)
[2018-11-03] MEDS ORDERED: PHENYLEPHRINE 0.5% 15 ML BTL NS ONE (05:00)
--- NOTE | 2018-11-03 05:04 | NUR ---
RT AT BEDSIDE FOR BREATHING TX. PT LAYING IN BED, VSS, RR EVEN AND UNLABORED. ADMINISTERED ORDERED MEDS WITH EDUCATION, PT VERBALIZED UNDERSTANDING, TOLERATED MED WELL.
--- NOTE | 2018-11-03 05:19 | NUR ---
Patient discharged with v/s stable. Written and verbal after care instructions given and explained. Patient alert, oriented and verbalized understanding of instructions. Ambulatory with steady gait. All questions addressed prior to discharge. ID band removed. Patient advised to follow up with PMD. Rx of AZITHROMYCIN, ALBUTEROL, PREDNISONE given. Patient educated on indication of medication including possible reaction and side effects. Opportunity to ask questions provided and answered.
== END 2018-11-03 05:19 | disposition home or self-care (01) ==
LOC: MED 03:50
DX: J20.9 Acute bronchitis, unspecified (principal); E11.9 Type 2 diabetes mellitus without complications; I10 Essential (primary) hypertension; Z79.82 Long term (current) use of aspirin; Z79.4 Long term (current) use of insulin; Z79.899 Other long term (current) drug therapy
CPT/HCPCS: 71045; 94640; 99284; J7512; J7620; Q0092

== ENCOUNTER 2018-11-09 03:47 | Emergency (ER) | payer OTHER ==
[~2018-11-09] VITALS: Ht 167.6 cm; Wt 78.0 kg
--- NOTE | 2018-11-09 03:52 | NUR ---
AMBULATED TO ER BED 4
[2018-11-09 03:55] VITALS: BP 140/77
--- NOTE | 2018-11-09 03:59 | NUR ---
Patient being evaluated by physician at bedside.
[2018-11-09] MEDS ORDERED: predniSONE 20 MG TAB PO ONE (04:05)
[2018-11-09] MEDS ORDERED: ALBUTEROL SULFATE/IPRATROPIU 3 ML SOL IH ONE (04:05)
[2018-11-09] MEDS ORDERED: IPRATROPIUM 0.02% 0.5 MG/2.5 ML NEBU INH ONE (04:10)
[2018-11-09] MEDS ORDERED: ALBUTEROL 0.083% 2.5 MG/3 ML NEBU INH ONE (04:10)
--- NOTE | 2018-11-09 04:10 | NUR ---
PT BIB SELF C/O SOB. PT STATES SOB AND A X2 WEEKS. PT STATES 5/10 THROAT PAIN WHEN COUGHING. DENIES N/V/D, FEVER OR CHILLS. --AUDIBLE COARSE LUNG SOUNDS BL, BREATHING EQUAL AND UNLABORED. PT ACTING APPROPRIATLY; AAOX4. PT SPEAKING IN CLEAR AND COMPLETE SENTENCES.
--- NOTE | 2018-11-09 04:15 | NUR ---
RT AT BEDSIDE FOR BREATHING TX.
--- NOTE | 2018-11-09 05:48 | NUR ---
Patient discharged with v/s stable. Patient sitting at the edge of bed, patient dressed and states he is ready to go home. Patient states he feels better after breathing treatment. Patient acting appropriatly. Written and verbal after care instructions given and explained. Patient alert, oriented and verbalized understanding of instructions. Ambulatory with steady gait. All questions addressed prior to discharge. ID band removed. Patient advised to follow up with PMD. Rx of Albuterol, and Azithromycin given. Patient educated on indication of medication including possible reaction and side effects. Opportunity to ask questions provided and answered.
[2018-11-09 05:52] VITALS: BP 138/68
== END 2018-11-09 05:48 | disposition home or self-care (01) ==
LOC: MED 03:47
DX: J40 Bronchitis, not specified as acute or chronic (principal); E11.9 Type 2 diabetes mellitus without complications; I10 Essential (primary) hypertension; Z79.82 Long term (current) use of aspirin; Z79.4 Long term (current) use of insulin; Z79.899 Other long term (current) drug therapy
CPT/HCPCS: 71045; 94644; 99285; J7512; J7613; J7644; Q0092; 94640; 99284

== ENCOUNTER 2019-02-03 03:07 | Emergency (ER) | payer OTHER ==
[~2019-02-03] VITALS: Ht 167.6 cm; Wt 79.8 kg
[~2019-02-03 03:07] MED LIST changes: -METH4TAB3 PO; -[UNRECOGNIZED DRUG - CODE] MC
[2019-02-03 03:09] VITALS: BP 150/82
--- NOTE | 2019-02-03 03:09 | NUR ---
TO BED # 02 AMBULATORY
--- NOTE | 2019-02-03 03:15 | NUR ---
PT CAME TO ER C/O OF PRODUCTIVE COUGH X 1 WEEK. RESPIRATIONS ARE EVEN AND UNLABORED. DENIES FEVER OR CHILLS. NO N/V/D. MED HX: DM. SAFETY MEASURES IN PLACE. ERMD EVALUATED PT Addendum: 02/03/19 at 0450 by [email or web address] BREATH SOUNDS ARE COARSE IN BILATERAL UPPER AIRWAYS
[2019-02-03] MEDS ORDERED: ALBUTEROL SULFATE/IPRATROPIU 3 ML SOL IH ONE ×2 (03:25→04:25)
[2019-02-03 03:39] LABS: BASOPHILS # (AUTO) 0.1 K/uL (0.00-0.22); BASOPHILS % (AUTO) 1.2 % (0.0-2.0); EOSINOPHILS # (AUTO) 0.6 K/uL (0-0.4); EOSINOPHILS % (AUTO) 7.3 % (0.0-4.0); HEMATOCRIT 41.9 % (36-52); HEMOGLOBIN 14.2 g/dL (12.0-18.0); LYMPHOCYTES # (AUTO) 2.4 K/uL (2.0-11.5); LYMPHOCYTES % (AUTO) 31.5 % (20.5-51.1); MEAN CORPUSCULAR HEMOGLOBIN 32 pg (27-31); MEAN CORPUSCULAR HGB CONC 34 g/dL (33-37); MONOCYTES # (AUTO) 0.6 K/uL (0.8-1.0); MONOCYTES % (AUTO) 7.6 % (1.7-9.3); NEUTROPHILS % (AUTO) 52.4 % (42.2-75.2); PLATELET COUNT (AUTO) 168 K/uL (140-450); RED BLOOD CELL COUNT(AUTO) 4.46 MIL/uL (4.20-6.10); RED CELL DISTRIBUTION WIDTH 14.4 % (11.6-13.7); WHITE BLOOD COUNT (AUTO) 7.7 K/uL (4.8-10.8)
[2019-02-03 03:47] LABS: CARBON DIOXIDE 31.6 mmol/L (21-32); CHLORIDE 105 mmol/L (98-107); CREATININE 0.9 mg/dL (0.7-1.3); GLUCOSE 247 mg/dL (74-106); POTASSIUM 3.6 mmol/L (3.5-5.1); SODIUM SERUM 140 mmol/L (136-145); UREA NITROGEN, BLOOD 9 mg/dL (7-18)
[2019-02-03 03:52] LABS: ALBUMIN 3.5 g/dL (3.4-5.0); ASPARTATE AMINOTRANSFERASE 19 U/L (15-37)
[2019-02-03] MEDS ORDERED: predniSONE 20 MG TAB PO ONE (04:25)
[2019-02-03] MEDS ORDERED: PROMETH/CODEINE 6.25-10MG/5ML 5 ML UDC PO ONE (04:25)
[2019-02-03 04:50] VITALS: BP 150/82
--- NOTE | 2019-02-03 04:50 | NUR ---
Patient discharged with v/s stable. Written and verbal after care instructions given and explained. Patient alert, oriented and verbalized understanding of instructions. Ambulatory with steady gait. All questions addressed prior to discharge. ID band removed. Patient advised to follow up with PMD. Rx of albuterol, prednisone and promethaizine was given. Patient educated on indication of medication including possible reaction and side effects. Opportunity to ask questions provided and answered.
== END 2019-02-03 04:50 | disposition home or self-care (01) ==
LOC: MED 03:07
DX: J40 Bronchitis, not specified as acute or chronic (principal); E11.9 Type 2 diabetes mellitus without complications; I10 Essential (primary) hypertension; Z79.82 Long term (current) use of aspirin; Z79.4 Long term (current) use of insulin; Z79.899 Other long term (current) drug therapy; Z95.4 Presence of other heart-valve replacement
CPT/HCPCS: 36415; 71045; 80053; 83880; 85025; 94640; 94760; 99284; J7512; J7620

== ENCOUNTER 2022-05-01 13:14 | Inpatient (IN) | payer OTHER ==
[~2022-05-01] VITALS: Ht 165.1 cm; Wt 65.8 kg
[~2022-05-01 13:14] MED LIST changes: -ASPI-1718 PO; +ASPI-1822 PO; +METF-346 PO; -METF500T PO; +POTA10TA71 PO; -POTA10TE31 PO
--- NOTE | 2022-05-01 13:21 | NUR ---
PT TO ER BED 12
[2022-05-01 13:25] VITALS: BP 148/88
[2022-05-01] MEDS ORDERED: ALBUTEROL SULFATE/IPRATROPIU 3 ML SOL IH ONE ×2 (13:35→13:55)
[2022-05-01] MEDS ORDERED: methylPREDNISolone SS 125 MG/2 ML VIAL IVP ONE (13:35)
--- NOTE | 2022-05-01 13:45 | NUR ---
Ashley and flu swabs collected and handed to geoscience laboratory technician at bedside.
[2022-05-01] MEDS ORDERED: OMEP20EC11 PO (14:07)
[2022-05-01] MEDS ORDERED: GABA300C PO (14:07)
[2022-05-01 14:12] LABS: HEMATOCRIT 44.8 % (36-52); HEMOGLOBIN 14.6 g/dL (12.0-18.0); MEAN CORPUSCULAR HEMOGLOBIN 32 pg (27-31); MEAN CORPUSCULAR HGB CONC 33 g/dL (33-37); MEAN CORPUSCULAR VOLUME 98.4 fL (80-94); PLATELET COUNT (AUTO) 341 K/uL (140-450); RED BLOOD CELL COUNT(AUTO) 4.56 MIL/uL (4.20-6.10); RED CELL DISTRIBUTION WIDTH 14.6 % (11.6-13.7); WHITE BLOOD COUNT (AUTO) 18.6 K/uL (4.8-10.8)
[2022-05-01] MEDS ORDERED: ALBUTEROL 0.083% 2.5 MG/3 ML NEBU INH ONE (14:15)
[2022-05-01 14:24] LABS: ALBUMIN 2.9 g/dL (3.4-5.0); ANION GAP 31.9 (8-16); ASPARTATE AMINOTRANSFERASE 29 U/L (15-37); CHLORIDE 87 mmol/L (98-107); CREATININE 1.5 mg/dL (0.6-1.3); POTASSIUM 3.8 mmol/L (3.5-5.1); SODIUM SERUM 123 mmol/L (136-145); TOTAL BILIRUBIN 0.7 mg/dL (0.0-1.0); UREA NITROGEN, BLOOD 30 mg/dL (7-18)
[2022-05-01 14:29] LABS: CARBON DIOXIDE 7.9 mmol/L (21-32); GLUCOSE 625 mg/dL (74-106)
[2022-05-01] MEDS ORDERED: NACL 0.9% 1,000 ML IV ONE (14:35)
[2022-05-01] MEDS ORDERED: INSULIN REGULAR, HUMAN 100 UNIT in NACL 0.9% 100 ML IV SCH ×2 (14:40)
[2022-05-01 14:48] LABS: BLASTS, MANUAL % 2 % (0-0); LYMPHOCYTES % (MANUAL) 5 % (20-46); METAMYELOCYTES % 4 % (0-0); MONOCYTES % (MANUAL) 2 % (5-12); MYELOCYTES % 2 % (0-0); PROMYELOCYTES % 4 % (0-0)
--- NOTE | 2022-05-01 14:51 | NUR ---
1340 CALLED TO BEDSIDE FOR TREATMENT. PT WOB IN THE MID 20S. SATURATION FLUCTUATES FROM 88%-99%. PLACED PT ON 3LNC, SATURATION IS 99%. WILL TITRATE. WOB OF BREATHING IS STILL ELEVATED BUT PT IS ABLE TO COMMUNICATE WELL. WILL CONTINUE TO MONITOR. BIPAP ON STAND BY.
--- NOTE | 2022-05-01 14:56 | NUR ---
PATIENT MOVED TO BED 10
[2022-05-01] MEDS ORDERED: AZITHROMYCIN 500 MG in DEXTROSE 5% 250 ML IV ONE (15:00)
[2022-05-01] MEDS ORDERED: ZOLPIDEM 10 MG TAB PO PRN (15:25)
[2022-05-01] MEDS ORDERED: MAG SULF 2000 MG/WATER PREMIX 50 ML IV PRN (15:25)
[2022-05-01] MEDS ORDERED: DOCUSATE SODIUM 100 MG GELCAP PO PRN (15:25)
[2022-05-01] MEDS ORDERED: ACETAMINOPHEN 325 MG TAB PO PRN (15:25)
[2022-05-01] MEDS ORDERED: LORazepam 2 MG/ML VIAL IVP PRN (15:25)
[2022-05-01] MEDS ORDERED: POTASSIUM CHLORIDE 10 MEQ TABER PO PRN (15:25)
[2022-05-01] MEDS ORDERED: ONDANSETRON 4 MG/2 ML VIAL IVP PRN (15:25)
[2022-05-01] MEDS ORDERED: DEXTROSE 50% 50 ML SYR IVP PRN (15:30)
[2022-05-01] MEDS ORDERED: ALBUTEROL 0.083% 2.5 MG/3 ML NEBU INH PRN (15:40)
[2022-05-01] MEDS: BLOOD GLUCOSE MONITORING 1 DEV DEV FS SCH ×9 (15:47→23:49)
[2022-05-01] MEDS ORDERED: cefTRIAXone 1,000 MG VIAL ONE (15:51)
--- NOTE | 2022-05-01 16:27 | NUR ---
77y/o male BIB granddaughter with c/o SOB x3days. Pt's granddaughter reports pt went to appointment with PCP yesterday for SOB, received a breathing treatment with mild relief. Pt uses inhaler at home for asthma, pt's granddaughter reports pt has been noncompliant with his insulin medication for the last two weeks, blood sugar upon arrival was 599. Pt states having 10/10 pinching like ABD pain x1 week, denies taking medication for pain. Pt placed in gown and bedside monitor car operator. Dr. Almaguer was made aware of pt status upon arrival.
[2022-05-01 16:28] LABS: ANION GAP 30.4 (8-16); CHLORIDE 90 mmol/L (98-107); CREATININE 1.4 mg/dL (0.6-1.3); SODIUM SERUM 124 mmol/L (136-145); UREA NITROGEN, BLOOD 29 mg/dL (7-18)
[2022-05-01 16:37] LABS: CARBON DIOXIDE 7.6 mmol/L (21-32); GLUCOSE 629 mg/dL (74-106)
--- NOTE | 2022-05-01 17:35 | NUR ---
PATIENT LYING IN BED WITH EYES OPEN ON BEDSIDE CHARACTER ACTOR. DENIES PAIN OR SOB AT THIS TIME. ALL NEEDS MET AT THIS TIME.
[2022-05-01] MEDS: GABAPENTIN 300 MG CAP PO SCH (17:36)
[2022-05-01] MEDS ORDERED: AZITHROMYCIN 500 MG INJ VIAL IV ONE (17:44)
--- NOTE | 2022-05-01 19:14 | NUR ---
Pt report given to Ortiz GOSS. Transfer of care at this time.
--- NOTE | 2022-05-01 19:15 | NUR ---
PATIENT LYING IN BED WITH EYES OPEN ON BEDSIDE CEMENT FINISHER HELPER. DENIES PAIN OR SOB AT THIS TIME. ALL NEEDS MET AT THIS TIME.
--- NOTE | 2022-05-01 20:05 | NUR ---
Patient will be admitted to care of Susan GOSS. Admited to ICU. Will go to room 3. Belongings list completed. Report given to Susan GOSS, Susan GOSS verbalized understanding of report, no further questions.
[2022-05-01 20:26] LABS: CHLORIDE 92 mmol/L (98-107); CREATININE 1.4 mg/dL (0.6-1.3); POTASSIUM 3.2 mmol/L (3.5-5.1); SODIUM SERUM 125 mmol/L (136-145); UREA NITROGEN, BLOOD 31 mg/dL (7-18)
[2022-05-01 20:28] LABS: CARBON DIOXIDE 8.2 mmol/L (21-32); GLUCOSE 515 mg/dL (74-106)
--- NOTE | 2022-05-01 20:35 | NUR ---
RECEIVED PT. FROM ER. PRIOR FOR PT. TRANSFER, ANA PAULA GUERRERO GAVE REPORT OVER THE PHONE. PT. AOX4, PASHTO SPEAKING. ON NASAL CANULA 2L. NO S/S OF RESPIRATORY DISTRESS. O2 SAT GREATER THAN 96%. IV SITE RIGHT AC 20G AND LEFT AC 20G INFUSING INSULIN DRIP AT 6 U/HR. DIET: CONSISTENT CARB 60 GMS. SINUS RHYTHM, SINUS TACHYCARDIA. SKIN DRY AND INTACT. USE URINAL. REPOSITIONED AND PLACED COMFORTABLY. BEDLOCK AND BED PLACED TO THE LOWEST HEIGHT. PROVIDED QUIET ENVIRONMENT. DENIES PAIN. WILL CONT. TO MONITOR.
[2022-05-01 20:37] VITALS: BP 131/77
[2022-05-01] MEDS: DEXT 5% / NACL 0.45% 1,000 ML IV SCH (20:40)
[2022-05-01] MEDS: NACL 0.9% 1,000 ML IV SCH (20:40)
[2022-05-01 21:00] VITALS: BP 133/79
[2022-05-01] MEDS ORDERED: methylPREDNISolone SS 40 MG in WATER STERILE 1 ML IV SCH (21:00)
[2022-05-01 22:00] VITALS: BP 132/75
[2022-05-01] MEDS: methylPREDNISolone SS 40 MG/ML VIAL IVP SCH (22:00)
[2022-05-01] MEDS: INSULIN REGULAR, HUMAN 100 UNIT in NACL 0.9% 100 ML IV SCH ×4 (22:46→23:50)
[2022-05-01 23:00] VITALS: BP 141/74
[2022-05-02] VITALS (24 sets, daily range): BP systolic 98–145; BP diastolic 52–90
[2022-05-02 00:24] LABS: ANION GAP 20.5 (8-16); CARBON DIOXIDE 14.3 mmol/L (21-32); CHLORIDE 99 mmol/L (98-107); CREATININE 1.2 mg/dL (0.6-1.3); GLUCOSE 235 mg/dL (74-106); SODIUM SERUM 131 mmol/L (136-145); UREA NITROGEN, BLOOD 31 mg/dL (7-18)
[2022-05-02] MEDS: BLOOD GLUCOSE MONITORING 1 DEV DEV FS SCH ×24 (00:25→23:37)
[2022-05-02 00:27] LABS: POTASSIUM 2.8 mmol/L (3.5-5.1)
--- NOTE | 2022-05-02 00:27 | NUR ---
LAB CALLED FOR K LEVEL OF 2.8. KCL 40 MEQ IVPB WILL BE GIVEN PRN. WILL ENDORSE TO THE NEXT SHIFT.
[2022-05-02 00:29] LABS: MAGNESIUM 1.7 mg/dL (1.8-2.4); PHOSPHORUS 1.6 mg/dL (2.5-4.9)
[2022-05-02] MEDS: KCL 20 MEQ/WATER INJ PREMIX 200 ML IV PRN ×2 (01:00→11:29)
[2022-05-02] MEDS: DEXT 5% / NACL 0.45% 1,000 ML IV SCH ×5 (01:30→21:36)
[2022-05-02] MEDS: NACL 0.9% 1,000 ML IV SCH ×5 (01:40→21:40)
[2022-05-02] MEDS: INSULIN REGULAR, HUMAN 100 UNIT in NACL 0.9% 100 ML IV SCH ×6 (03:28→05:36)
[2022-05-02 04:36] LABS: ANION GAP 18.2 (8-16); CARBON DIOXIDE 15.6 mmol/L (21-32); CHLORIDE 102 mmol/L (98-107); CREATININE 1.2 mg/dL (0.6-1.3); GLUCOSE 188 mg/dL (74-106); SODIUM SERUM 133 mmol/L (136-145); UREA NITROGEN, BLOOD 31 mg/dL (7-18)
[2022-05-02 04:42] LABS: POTASSIUM 2.8 mmol/L (3.5-5.1)
--- NOTE | 2022-05-02 05:24 | NUR ---
LAB DRAWN BLOOD AT 0400 AND K LEVEL CAME OUT 2.8. PT. STILL WITH ON GOING KCL 40MEQ IVPB DURING THE DRAWING OF BLOOD. WILL ENDORSE TO THE NEXT SHIFT.
[2022-05-02 05:52] LABS: BASOPHILS % (AUTO) 0.2 % (0.0-2.0); HEMATOCRIT 38.1 % (36-52); HEMOGLOBIN 13.2 g/dL (12.0-18.0); LYMPHOCYTES # (AUTO) 0.4 K/uL (2.0-11.5); MEAN CORPUSCULAR HEMOGLOBIN 32 pg (27-31); MEAN CORPUSCULAR HGB CONC 35 g/dL (33-37); MEAN CORPUSCULAR VOLUME 92.4 fL (80-94); MONOCYTES # (AUTO) 0.5 K/uL (0.8-1.0); MONOCYTES % (AUTO) 2.3 % (1.7-9.3); NEUTROPHILS # (AUTO) 19.8 K/uL (1.8-7.7); NEUTROPHILS % (AUTO) 95.5 % (42.2-75.2); PLATELET COUNT (AUTO) 208 K/uL (140-450); RED BLOOD CELL COUNT(AUTO) 4.12 MIL/uL (4.20-6.10); RED CELL DISTRIBUTION WIDTH 13.8 % (11.6-13.7); WHITE BLOOD COUNT (AUTO) 20.8 K/uL (4.8-10.8)
[2022-05-02] MEDS: methylPREDNISolone SS 40 MG/ML VIAL IVP SCH ×3 (05:59→21:40)
--- NOTE | 2022-05-02 07:15 | NUR ---
ENDORSED PT.REPORT GIVEN TO ANA PAULA BERNARD FOR CONTINUITY OF CARE. ALL QUESTIONS ANSWERED.
--- NOTE | 2022-05-02 07:25 | NUR ---
SBAR REPORT RECEIVED FROM SHEILA GOSS, ALL CARES ASSUMED. PT RESTING IN BED WITH EYES CLOSED. ON 2L NC O2. BED IN LOW, LOCKED POSITION.
[2022-05-02 08:19] LABS: ANION GAP 16.8 (8-16); CHLORIDE 103 mmol/L (98-107); CREATININE 1.1 mg/dL (0.6-1.3); GLUCOSE 178 mg/dL (74-106); SODIUM SERUM 133 mmol/L (136-145); UREA NITROGEN, BLOOD 31 mg/dL (7-18)
[2022-05-02 08:24] LABS: MAGNESIUM 2.2 mg/dL (1.8-2.4); POTASSIUM 2.8 mmol/L (3.5-5.1)
[2022-05-02 08:25] LABS: PHOSPHORUS 1.1 mg/dL (2.5-4.9)
[2022-05-02] MEDS: GABAPENTIN 300 MG CAP PO SCH ×3 (09:08→17:00)
--- NOTE | 2022-05-02 09:45 | NUR ---
DAUGHTER OF PT AT BEDSIDE. UPDATE GIVEN, ALL QUESTIONS ANSWERED AT THIS TIME.
--- NOTE | 2022-05-02 10:37 | NUR ---
PATIENT HAS BEEN SCREENED AND CATEGORIZED HIGH NUTRITION RISK. PATIENT WILL BE SEEN WITHIN 1-2 DAYS OF ADMISSION. 05/01/22-05/03/[address]
--- NOTE | 2022-05-02 12:01 | NUR ---
PT CURRENTLY ON ROOM AIR, SATURATION 95%-96%. NO DISTRESS NOTED.
[2022-05-02 12:34] LABS: ANION GAP 14.4 (8-16); CARBON DIOXIDE 18.4 mmol/L (21-32); CHLORIDE 103 mmol/L (98-107); CREATININE 1.1 mg/dL (0.6-1.3); GLUCOSE 182 mg/dL (74-106); SODIUM SERUM 133 mmol/L (136-145); UREA NITROGEN, BLOOD 31 mg/dL (7-18)
[2022-05-02 12:38] LABS: POTASSIUM 2.8 mmol/L (3.5-5.1)
[2022-05-02 12:39] LABS: MAGNESIUM 2.8 mg/dL (1.8-2.4)
[2022-05-02] MEDS ORDERED: SODIUM PHOS / POTASSIUM PHOS 1 PKT PDR PO SCH ×2 (12:45→21:00)
--- NOTE | 2022-05-02 14:37 | NUR ---
05/02/22 RD INITIAL ASSESSMENT COMPLETED PLEASE REFER TO NUTRITION ASSESSMENT UNDER CARE ACTIVITY FOR ESTIMATED NUTRITIONAL NEEDS. 1. CONTINUE CCHO60 DIET TOLERATED 2. OFFERED ORAL SUPPLEMENT FOR NUTRITION SUPPORT; PATIENT DECLINED. 3. OFFERED DIABETES EDUCATION; PATIENT DECLINED. 3. RD TO FOLLOW-UP 3-5 DAYS, MODERATE RISK (DOWNGRADED D/T PT BLOOD GLUCOSE LEVELS UNDER CONTROL) REVIEWED BY MIKEY WATTERS RD
[2022-05-02] MEDS ORDERED: AZITHROMYCIN 500 MG in DEXTROSE 5% 250 ML IV SCH (16:00)
--- NOTE | 2022-05-02 16:15 | NUR ---
BED BATH GIVEN, LINENS CHANGED. PT ASSISTED WITH TURNING IN BED. TOLERATED WELL.
[2022-05-02 16:31] LABS: CARBON DIOXIDE 16.1 mmol/L (21-32); CHLORIDE 103 mmol/L (98-107); GLUCOSE 132 mg/dL (74-106); POTASSIUM 3.1 mmol/L (3.5-5.1); SODIUM SERUM 132 mmol/L (136-145); UREA NITROGEN, BLOOD 29 mg/dL (7-18)
--- NOTE | 2022-05-02 19:25 | NUR ---
SBAR REPORT GIVEN TO SHEILA GOSS, ALL CARES ENDORSED.
--- NOTE | 2022-05-02 19:44 | NUR ---
RECEIVED PT. FROM DAY SHIFT ANA PAULA BERNARD. PT. SLEEPING MOST OF THE TIME AND WITH PERIOD OF CONFUSION AT TIMES. EPISODE OF COUGH CREAMY YELLOW THICK SECRETIONS. ON ROOM AIR, O2 SAT 97%. SINUS RHYTHM ON THE MONITOR. DIET: CONSISTENT CARB 60 GMS.IV SITE TO LEFT LFA 20G INFUSING IVF, LEFT AC 20G INFUSING INSULIN DRIP. PT. INCONTINENT WITH YELLOW CLEAR URINE. SKIN INTACT. ABLE TO MOVE IN BED, BUT STILL NEEDS 2 ASSIST TO DO HIS PERSONAL CARE. PLACED IN COMFORTABLE POSITION. PROVIDED SAFE AND QUIET ENVIRONMENT. NO S/S OF PAIN. WILL CONT. TO MONITOR.
[2022-05-02 20:15] LABS: ANION GAP 14.7 (8-16); CARBON DIOXIDE 17.6 mmol/L (21-32); CHLORIDE 103 mmol/L (98-107); GLUCOSE 194 mg/dL (74-106); POTASSIUM 3.3 mmol/L (3.5-5.1); SODIUM SERUM 132 mmol/L (136-145); UREA NITROGEN, BLOOD 31 mg/dL (7-18)
[2022-05-03] VITALS (20 sets, daily range): BP systolic 104–147; BP diastolic 52–109
--- NOTE | 2022-05-03 00:32 | NUR ---
LAB CAME AND DRAWN BLOOD.
[2022-05-03 00:42] LABS: ANION GAP 14.4 (8-16); CARBON DIOXIDE 16.8 mmol/L (21-32); CHLORIDE 105 mmol/L (98-107); CREATININE 0.9 mg/dL (0.6-1.3); GLUCOSE 197 mg/dL (74-106); POTASSIUM 3.2 mmol/L (3.5-5.1); SODIUM SERUM 133 mmol/L (136-145); UREA NITROGEN, BLOOD 29 mg/dL (7-18)
[2022-05-03] MEDS: BLOOD GLUCOSE MONITORING 1 DEV DEV FS SCH ×16 (00:43→21:56)
[2022-05-03] MEDS: DEXT 5% / NACL 0.45% 1,000 ML IV SCH ×3 (02:40→12:32)
[2022-05-03] MEDS: NACL 0.9% 1,000 ML IV SCH ×4 (02:45→17:40)
[2022-05-03] MEDS: KCL 20 MEQ/WATER INJ PREMIX 200 ML IV PRN ×2 (03:09→19:22)
[2022-05-03 04:17] LABS: BASOPHILS # (AUTO) 0.1 K/uL (0.00-0.22); BASOPHILS % (AUTO) 0.3 % (0.0-2.0); HEMATOCRIT 37.6 % (36-52); LYMPHOCYTES # (AUTO) 0.3 K/uL (2.0-11.5); LYMPHOCYTES % (AUTO) 1.3 % (20.5-51.1); MEAN CORPUSCULAR HEMOGLOBIN 32 pg (27-31); MEAN CORPUSCULAR HGB CONC 35 g/dL (33-37); MEAN CORPUSCULAR VOLUME 91.4 fL (80-94); MONOCYTES # (AUTO) 0.2 K/uL (0.8-1.0); NEUTROPHILS # (AUTO) 20.9 K/uL (1.8-7.7); NEUTROPHILS % (AUTO) 97.4 % (42.2-75.2); PLATELET COUNT (AUTO) 190 K/uL (140-450); RED BLOOD CELL COUNT(AUTO) 4.11 MIL/uL (4.20-6.10); RED CELL DISTRIBUTION WIDTH 13.9 % (11.6-13.7); WHITE BLOOD COUNT (AUTO) 21.5 K/uL (4.8-10.8)
[2022-05-03 04:21] LABS: ANION GAP 15.1 (8-16); CARBON DIOXIDE 17.8 mmol/L (21-32); CHLORIDE 104 mmol/L (98-107); CREATININE 0.9 mg/dL (0.6-1.3); GLUCOSE 293 mg/dL (74-106); POTASSIUM 3.9 mmol/L (3.5-5.1); SODIUM SERUM 133 mmol/L (136-145); UREA NITROGEN, BLOOD 27 mg/dL (7-18)
[2022-05-03 04:24] LABS: MAGNESIUM 2.3 mg/dL (1.8-2.4); PHOSPHORUS 1.8 mg/dL (2.5-4.9)
[2022-05-03] MEDS: INSULIN REGULAR, HUMAN 100 UNIT in NACL 0.9% 100 ML IV SCH ×2 (04:37)
[2022-05-03] MEDS: methylPREDNISolone SS 40 MG/ML VIAL IVP SCH ×3 (05:38→22:10)
--- NOTE | 2022-05-03 07:22 | NUR ---
SBAR REPORT RECEIVED FROM SHEILA GOSS, ALL CARES ASSUMED. PT RESTING IN BED WITH CLOSED. BED IN LOW, LOCKED POSITION.
--- NOTE | 2022-05-03 07:36 | NUR ---
REPORT GIVEN TO ANA PAULA BERNARD FOR CONTINUITY OF CARE. ALL QUESTIONS ANSWERED.
--- NOTE | 2022-05-03 08:10 | NUR ---
PRN TREATMENT GIVEN TO PT DUE TO WHEEZING. SATURATION IS 97% ON ROOM AIR.
[2022-05-03] MEDS ORDERED: INSULIN LANTUS 100 UNITS/ML 10 ML VIAL SUBQ SCH (08:15)
[2022-05-03 09:31] LABS: ANION GAP 14.8 (8-16); CARBON DIOXIDE 17.7 mmol/L (21-32); CHLORIDE 107 mmol/L (98-107); CREATININE 0.8 mg/dL (0.6-1.3); GLUCOSE 223 mg/dL (74-106); POTASSIUM 3.5 mmol/L (3.5-5.1); SODIUM SERUM 136 mmol/L (136-145); UREA NITROGEN, BLOOD 26 mg/dL (7-18)
[2022-05-03 09:36] LABS: MAGNESIUM 2.3 mg/dL (1.8-2.4); PHOSPHORUS 1.3 mg/dL (2.5-4.9)
[2022-05-03] MEDS: GABAPENTIN 300 MG CAP PO SCH ×3 (09:57→17:39)
--- NOTE | 2022-05-03 10:30 | NUR ---
PT REFUSING BLOOD GLUCOSE CHECK AND SUBQ INSULIN. PT REPORTS HE DOES NOT WANT ANYMORE NEEDLES.
--- NOTE | 2022-05-03 12:00 | NUR ---
LAB CAME TO DRAW PT BLOOD, PT ALLOWED. THIS NURSE EDUCATED PT ON INSULIN A SECOND TIME. PT AGREED TO TAKE SUBQ INSULIN.
[2022-05-03 12:08] LABS: ANION GAP 15.3 (8-16); CARBON DIOXIDE 17.8 mmol/L (21-32); CHLORIDE 106 mmol/L (98-107); CREATININE 0.9 mg/dL (0.6-1.3); GLUCOSE 227 mg/dL (74-106); POTASSIUM 3.1 mmol/L (3.5-5.1); SODIUM SERUM 136 mmol/L (136-145); UREA NITROGEN, BLOOD 25 mg/dL (7-18)
[2022-05-03] MEDS: PIPERACILLIN/TAZOBACTAM 3.375 GM in DEXTROSE 5% 50 ML IV SCH ×2 (12:32→18:34)
[2022-05-03] MEDS: ALBUTEROL SULFATE/IPRATROPIU 3 ML SOL IH SCH ×2 (12:58→19:00)
--- NOTE | 2022-05-03 13:00 | NUR ---
DAUGHTER OF PT AT BEDSIDE, UPDATE GIVEN. DAUGHTER OF PT ENCOURAGING PT TO EAT. PT TAKING A FEW BITES OF FOOD AND SIPS OF WATER.
[2022-05-03] MEDS: INSULIN LISPRO SLIDING SCALE 100 UNITS/ML VIAL SUBQ PRN (15:46)
--- NOTE | 2022-05-03 20:07 | NUR ---
1909 PATIENT REFUSED BREATHING TREATMENT. SAYS HE'S HAD TO MUCH. BREATH SOUNDS ARE MILD WHEEZING. PATIENT HAS PRODUCTIVE COUGH. SATS ON ROOM AIR 98%. NO SOB NOTED
[2022-05-03] MEDS ORDERED: Z-GUARD PASTE TP ONE (20:17)
--- NOTE | 2022-05-03 20:49 | NUR ---
PHONE CALL TO DR CROWDER, REGARDING TRANSFER OF PT TO TELE STATUS, DR CROWDER SAID OK TO TRANSFER PT TO TELEMETRY
--- NOTE | 2022-05-03 22:20 | NUR ---
RECEIVED PATIENT FROM ICU, PATIENT IS AWAKE, ALERT AND ORIENTED, NO SIGNS OF DISTRESS NOTED. VITALS TAKEN AT BEDSIDE, TEMP 98.0, PULSE 88 BPM, BP 139/90 MMHG, RESP 18 BREATHS/MIN, O2 99% ON ROOM AIR. IZZY CARE DONE, ASSESSMENT DONE, ORIENTED PATIENT TO USE OF CALL LIGHT AND TO ALWAYS USE CALL LIGHT IF HE NEEDS ASSISTANCE. CALL LIGHT WITHIN REACH. SAFETY PRECAUTIONS IN PLACE.
--- NOTE | 2022-05-03 22:28 | NUR ---
Pt transferred to telemetry 123A, report given to Conner GOSS. Afebrile. Pt neurologically unchanged. SR on monitor. BP stable. RA 24RR 96%SpO2. +Intermittent productive cough. Tolerating PO intake, no BM for the shift. Incontinent of urine, changed after incontinent episode. PIVx2, site unremarkable. Latest FSBS 337 received Humalog 8units sq. No acute events since 7p.
--- NOTE | 2022-05-03 22:50 | NUR ---
PHONE CALL TO CAROLANN OLIVO RE PT TO TELE, NO ANSWER, CALLED MORENA PALLAVI [phone] AND INFORMED MORENA THAT PT WAS TRANSFERRED TO TELEMETRY UNIT ROOM 123A IN STABLE CONDITION.
[2022-05-03] MEDS: MORPHINE SULFATE 2 MG/ML SYR IVP PRN (23:28)
[2022-05-04] MEDS: PIPERACILLIN/TAZOBACTAM 3.375 GM in DEXTROSE 5% 50 ML IV SCH ×4 (00:10→17:51)
--- NOTE | 2022-05-04 00:30 | NUR ---
MIDNIGHT ZOSYN GIVEN. PT NEEDS URINE FOR COLLECTION. TOLD PT TO USE URINAL WHEN HE NEEDS TO URINATE. PT VERBALIZE UNDERSTANDING. Addendum: 05/04/22 at 0249 by Rashmi Astudillo RN PT C/O 8/10 STOMACH PAIN . TOO EARLY FOR MORPHINE. MEDICATED WITH ZOFRAN 4MG/1ML IVP. REPOSITIONED IN BED. CALL LIGHT WITHIN REACH. WILL CONTINUE TO MONITOR.
[2022-05-04] MEDS: ALBUTEROL SULFATE/IPRATROPIU 3 ML SOL IH SCH ×4 (00:44→19:00)
[2022-05-04] MEDS: Z-GUARD PASTE TP SCH ×2 (01:11→12:42)
--- NOTE | 2022-05-04 03:10 | NUR ---
PT WAS UNABLE TO USE URINAL. PT AGREED TO PUT A CONDOM CATH ON. CONDOM CATH PLACED. WILL CONTINUE TO MONITOR AND WAIT TO COLLECT URINE SAMPLE.
--- NOTE | 2022-05-04 03:55 | NUR ---
PT PULLED OFF GOWN, TELE BOX, AND CONDOM CATH. PT WAS REFUSING TO CONNECT HIM BACK TO THE MONITOR BUT WAS PERSUADED. GOWN WAS PUT BACK ON. PT REFUSED TO PUT CONDOM CATH BACK ON AND STATED HE WILL USE URINAL. BED ALARM STILL ON. WILL CONTINUE TO MONITOR THE PT.
[2022-05-04 06:05] LABS: HEMATOCRIT 36.1 % (36-52); HEMOGLOBIN 12.5 g/dL (12.0-18.0); MEAN CORPUSCULAR HEMOGLOBIN 32 pg (27-31); MEAN CORPUSCULAR HGB CONC 35 g/dL (33-37); MEAN CORPUSCULAR VOLUME 92.4 fL (80-94); PLATELET COUNT (AUTO) 182 K/uL (140-450); RED BLOOD CELL COUNT(AUTO) 3.91 MIL/uL (4.20-6.10); RED CELL DISTRIBUTION WIDTH 14.1 % (11.6-13.7); WHITE BLOOD COUNT (AUTO) 14.8 K/uL (4.8-10.8)
[2022-05-04 06:22] LABS: CARBON DIOXIDE 15.4 mmol/L (21-32); CREATININE 1.1 mg/dL (0.6-1.3); GLUCOSE 393 mg/dL (74-106); UREA NITROGEN, BLOOD 25 mg/dL (7-18)
[2022-05-04] MEDS: methylPREDNISolone SS 40 MG/ML VIAL IVP SCH ×3 (06:29→22:35)
[2022-05-04] MEDS: INSULIN LISPRO SLIDING SCALE 100 UNITS/ML VIAL SUBQ PRN ×4 (06:34→21:21)
[2022-05-04] MEDS: BLOOD GLUCOSE MONITORING 1 DEV DEV FS SCH ×4 (06:34→21:15)
[2022-05-04 07:01] LABS: ANION GAP 19.3 (8-16); CHLORIDE 102 mmol/L (98-107); POTASSIUM 3.7 mmol/L (3.5-5.1); SODIUM SERUM 133 mmol/L (136-145)
--- NOTE | 2022-05-04 07:03 | NUR ---
PT SATURATION IS 98% ON ROOM AIR. BREATH SOUNDS ARE WHEEZES THROUGHOUT. TREATMENT GIVEN. IMPROVED BREATH SOUNDS BUT STILL HAS A WHEEZE. EQUAL CHEST RISE AND PT RESTING COMFORTABLY. WILL CONTINUE TO MONITOR.
--- NOTE | 2022-05-04 07:10 | NUR ---
ENDORSED PT TO DAY SHIFT RN FOR CONTINUITY OF CARE. PT IS STABLE.
--- NOTE | 2022-05-04 07:11 | NUR ---
RECEIVED PT FROM TACK PULLER NURSE KEYUR. PT AWAKE, SITTING IN BED. RESPIRATIONS EVEN AND UNLABORED ON RA, WITH EPISODES OF COUGHING. NO DISTRESS NOTED. NO COMPLAINTS OF PAIN. ON CLOUD SYSTEMS ADMINISTRATOR. IV SITE ON LFA 20G, SL. CALL LIGHT WITHIN REACH. SAFETY PRECAUTIONS IN PLACE.
[2022-05-04 07:39] LABS: LYMPHOCYTES % (MANUAL) 2 % (20-46); MONOCYTES % (MANUAL) 1 % (5-12)
[2022-05-04 08:00] VITALS: BP 112/78
[2022-05-04] MEDS: GABAPENTIN 300 MG CAP PO SCH ×3 (09:02→16:58)
--- NOTE | 2022-05-04 09:05 | NUR ---
ADMINISTERED SCHEDULED MORNING MED. PT TEACHING ABOUT MED GIVEN. PT VERBALIZED UNDERSTANDING.
--- NOTE | 2022-05-04 11:53 | NUR ---
BLOOD SUGAR CHECK DONE. SLIDING SCALE INSULIN ADMINISTERED.
[2022-05-04 12:00] VITALS: BP 121/74
--- NOTE | 2022-05-04 12:25 | NUR ---
IV ABX ADMINISTERED BY ANA PAULA KAHN. NO ADVERSE REACTION NOTED.
--- NOTE | 2022-05-04 14:01 | NUR ---
URINE COLLECTED AND SENT TO LAB.
[2022-05-04 14:10] LABS: BILIRUBIN,URINE NEGATIVE (NEGATIVE); BLOOD, URINE TRACE-I (NEGATIVE); COLOR,URINE YELLOW (YELLOW); LEUKOCYTE ESTERASE ,URINE TRACE (NEGATIVE); NITRITE, URINE NEGATIVE (NEGATIVE); UGLUCOSE 3+ (NEGATIVE)
[2022-05-04 14:33] LABS: APPEARANCE,URINE HAZY (CLEAR)
[2022-05-04 16:00] VITALS: BP 107/74
--- NOTE | 2022-05-04 17:01 | NUR ---
BLOOD GLUCOSE CHECK DONE. SLIDING SCALE INSULIN ADMINISTERED. SCHEDULED MED GIVEN.
--- NOTE | 2022-05-04 19:06 | NUR ---
ENDORSED PT TO DYE JIG OPERATOR NURSE YOLANDA. ALL NEEDS MET THROUGHOUT SHIFT. PT IS STABLE.
--- NOTE | 2022-05-04 19:30 | NUR ---
RECEIVED REPORT FROM DAY SHIFT NURSE ADDY FOR CONTINUITY OF CARE. PATIENT IS A&O X3, GUYANESE SPEAKING. PATIENT IS ON ROOM AIR, BREATHING IS NORMAL WITH SYMMETRICAL RISE AND FALL OF CHEST. IV IS A 20G LFA, RUNNING IVPB ZOSYN. PATIENT IS SLEEPING IN SEMI-FOWLERS POSITION. BED IS IN LOWEST POSITION WITH WHEELS LOCKED AND CALL LIGHT IN PLACE. WILL CONTINUE TO OBSERVE PATIENT.
[2022-05-04 20:00] VITALS: BP 109/86
--- NOTE | 2022-05-04 21:25 | NUR ---
ENTERED ROOM TO OBTAIN BS FROM PATIENT. PATIENT WAS SLEEPING, LYING IN HIGH-FOWLERS POSITION. WOKE PATIENT UP AND OBTAINED BS; BS WAS 347. ADMINISTERED 8 UNITS OF HUMALOG FOR COVERAGE. PATIENT'S BREATHING WAS NORMAL WITH SYMMETRICAL RISE AND FALL OF CHEST. BED IS IN LOWEST POSITION, WHEELS LOCKED, CALL LIGHT IN PLACE. WILL CONTINUE TO OBSERVE PATIENT.
[2022-05-04 21:50] LABS: COARSE GRANULAR CASTS,URINE 0-10 /LPF (None Seen); RBC,URINE 0-5 /HPF (0-5); YEAST,URINE Moderate /HPF (None Seen)
[2022-05-04] MEDS ORDERED: BENZOCAINE/MENTHOL 1 LOZ MM PRN (22:25)
[2022-05-05] VITALS: BP 118/86
[2022-05-05] MEDS: ALBUTEROL SULFATE/IPRATROPIU 3 ML SOL IH SCH ×4 (00:14→19:49)
[2022-05-05] MEDS: PIPERACILLIN/TAZOBACTAM 3.375 GM in DEXTROSE 5% 50 ML IV SCH ×4 (00:37→17:09)
--- NOTE | 2022-05-05 00:46 | NUR ---
ADMINISTERED 0000 IVPB ZOSYN. PATIENT WAS SLEEPING WHEN I ENTERED THE ROOM. IVPB STARTED WITHOUT ANY ISSUES. BREATHING WAS NORMAL WITH SYMMETRICAL RISE AND FALL OF CHEST. WILL CONTINUE TO OBSERVE PATIENT.
[2022-05-05] MEDS: Z-GUARD PASTE TP SCH ×2 (01:01→13:15)
--- NOTE | 2022-05-05 02:19 | NUR ---
PATIENT WOKE UP AND REQUESTED COUGH DROP FOR THROAT PAIN. ADMINISTERED COUGH DROP TO PATIENT. PATIENT TOLERATED WELL. WILL CONTINUE TO OBSERVE PATIENT.
[2022-05-05 04:00] VITALS: BP 145/82
--- NOTE | 2022-05-05 04:00 | NUR ---
ENTERED ROOM TO OBTAIN VITALS. VITALS WERE: TEMP 97.0, HR 88, BP 145/82, O2 98, RR 18. PATIENT WAS AWAKE SITTING IN HIGH-FOWLERS POSITION. BED IS IN LOWEST POSITION WITH WHEELS LOCKED AND CALL LIGHT IN PLACE. WILL CONTINUE TO OBSERVE PATIENT.
--- NOTE | 2022-05-05 05:35 | NUR ---
ADMINISTERED 0600 IVPB ZOSYN TO PATIENT. PATIENT WAS AWAKE, SITTING IN HIGH-FOWLERS POSITION IN BED. BREATHING WAS NORMAL WITH SYMMETRICAL RISE AND FALL OF CHEST. WILL CONTINUE TO OBSERVE PATIENT.
[2022-05-05] MEDS: methylPREDNISolone SS 40 MG/ML VIAL IVP SCH ×2 (06:42→21:13)
[2022-05-05] MEDS: BLOOD GLUCOSE MONITORING 1 DEV DEV FS SCH ×4 (07:16→21:03)
[2022-05-05] MEDS: INSULIN LISPRO SLIDING SCALE 100 UNITS/ML VIAL SUBQ PRN ×3 (07:17→17:07)
[2022-05-05 07:28] LABS: BASOPHILS % (AUTO) 0.1 % (0.0-2.0); HEMATOCRIT 38.1 % (36-52); HEMOGLOBIN 12.9 g/dL (12.0-18.0); LYMPHOCYTES # (AUTO) 0.4 K/uL (2.0-11.5); MEAN CORPUSCULAR HEMOGLOBIN 31 pg (27-31); MEAN CORPUSCULAR HGB CONC 34 g/dL (33-37); MEAN CORPUSCULAR VOLUME 92.5 fL (80-94); MONOCYTES # (AUTO) 0.4 K/uL (0.8-1.0); MONOCYTES % (AUTO) 2.3 % (1.7-9.3); NEUTROPHILS # (AUTO) 15.6 K/uL (1.8-7.7); PLATELET COUNT (AUTO) 214 K/uL (140-450); RED BLOOD CELL COUNT(AUTO) 4.12 MIL/uL (4.20-6.10); RED CELL DISTRIBUTION WIDTH 14.3 % (11.6-13.7); WHITE BLOOD COUNT (AUTO) 16.4 K/uL (4.8-10.8)
--- NOTE | 2022-05-05 07:30 | NUR ---
OBTAINED BS; BS WAS 372, ADMINISTERED 10 UNITS OF HUMALOG FOR COVERAGE INTO RIGHT ARM. PATIENT TOLERATED INJECTION WELL. BREATHING WAS NORMAL WITH SYMMETRICAL RISE AND FALL OF CHEST. WILL ENDORSE CARE OF PATIENT TO DAY SHIFT NURSE.
--- NOTE | 2022-05-05 07:50 | NUR ---
ENDORSED TO DAY SHIFT NURSE ITZ FOR CONTINUITY OF CARE. PATIENT IS STABLE.
[2022-05-05 07:57] LABS: CARBON DIOXIDE 18.1 mmol/L (21-32); CREATININE 1.8 mg/dL (0.6-1.3); GLUCOSE 389 mg/dL (74-106); UREA NITROGEN, BLOOD 34 mg/dL (7-18)
[2022-05-05 08:00] VITALS: BP 115/75
[2022-05-05 08:04] LABS: LYMPHOCYTES % (AUTO) 2.6 % (20.5-51.1)
[2022-05-05 08:47] LABS: ANION GAP 18.9 (8-16); CHLORIDE 98 mmol/L (98-107); SODIUM SERUM 131 mmol/L (136-145)
[2022-05-05] MEDS: GABAPENTIN 300 MG CAP PO SCH ×3 (10:25→17:08)
[2022-05-05 12:00] VITALS: BP 146/85
[2022-05-05 16:00] VITALS: BP 122/82
--- NOTE | 2022-05-05 19:12 | NUR ---
ENDORSE PATIENT TO PM SHIFT NURSE WHILE PATIENT REST IN BED PIV L.FOREARM 20G SALINE LOCK. ON TEL MONITOR, ACCUCHECK AC & HS
--- NOTE | 2022-05-05 19:30 | NUR ---
RECEIVED REPORT FROM DAY SHIFT NURSE ITZ FOR CONTINUITY OF CARE. PATIENT IS A&O X3; KHMER SPEAKING. PATIENT IS ON ROOM AIR, BREATHING IS NORMAL WITH SYMMETRICAL RISE AND FALL OF CHEST. IV IS A 20G LFA, NO FLUIDS RUNNING AT THIS TIME. PATIENT IS AWAKE, SITTING IN HIGH FOWLERS POSITION. BED IS IN LOWEST POSITION, WHEELS LOCKED, CALL LIGHT IN PLACE. WILL CONTINUE TO OBSERVE PATIENT.
[2022-05-05 20:00] VITALS: BP 109/62
[2022-05-05] MEDS ORDERED: INSULIN LISPRO 100 UNITS/ML VIAL SUBQ SCH (21:00)
--- NOTE | 2022-05-05 21:20 | NUR ---
OBTAINED 1999 VITALS. VITALS WERE: BP 109/62, HR 100, O2 98, RR 18. PATIENT WAS COOPERATIVE WHILE OBTAINING VITALS. OBTAINED PATIENT'S BS, BS WAS 426, PAGED NEUROLOGICAL SURGEON PHYSICIAN (CASIE DOE). PATIENT INDICATED THAT HE HAD PAIN IN HIS RIGHT AC, RIGHT AC APPEARS BRUISED. CHECKED PATIENT'S CHART, PATIENT HAD MORPHINE ON FILE. INFORMED PATIENT OF MORPHINE, PATIENT DIDN'T WANT. OFFERED TYLENOL, PATIENT WAS OKAY WITH TYLENOL. DR. DOE MESSAGED BACK AND ORDERED HUMALOG 12 UNITS TO BE GIVEN. I PUT ORDER INTO SYSTEM, AND OBTAINED 12 UNITS OF HUMALOG, 2100 MEDICATION, AND TYLENOL. ADMINISTERED MEDICATION. PATIENT TOLERATED WELL. PATIENT WAS SITTING ON BED IN HIGH-FOWLERS POSITION. WILL CONTINUE TO OBSERVE PATIENT.
--- NOTE | 2022-05-05 21:20 | NUR ---
2100 IVP SOLU-MEDROL WAS GIVEN. 0.5 ML WAS WASTED BEFORE ADMINISTERING TO PATIENT. PATIENT WAS GIVEN 0.5 ML (20 MG) ORDERED BY PHYSICIAN.
[2022-05-06] VITALS: BP 96/68
[2022-05-06] MEDS: PIPERACILLIN/TAZOBACTAM 3.375 GM in DEXTROSE 5% 50 ML IV SCH ×4 (00:30→17:09)
--- NOTE | 2022-05-06 00:40 | NUR ---
ENTERED PATIENT'S ROOM TO OBTAIN 0000 VITALS AND ADMINISTER ZOSYN IVPB. PATIENT WAS SLEEPING LYING IN HIGH-FOWLERS POSITION. VITALS WERE: BP 96/68, HR 94, TEMP 96.1, O2 97, RR 18. IVPB WAS ADMINISTERED SUCCESSFULLY WITHOUT ANY ISSUES. BREATHING WAS NORMAL WITH SYMMETRICAL RISE AND FALL OF CHEST. BED WAS IN LOWEST POSITION, WHEELS LOCKED, CALL LIGHT IN PLACE. WILL CONTINUE TO OBSERVE PATIENT.
[2022-05-06] MEDS: ALBUTEROL SULFATE/IPRATROPIU 3 ML SOL IH SCH ×4 (01:00→19:19)
[2022-05-06] MEDS: Z-GUARD PASTE TP SCH ×2 (01:27→12:29)
--- NOTE | 2022-05-06 03:00 | NUR ---
LOOKED IN ON PATIENT. PATIENT WAS SLEEPING IN HIGH-FOWLERS POSITION. BREATHING IS NORMAL WITH SYMMETRICAL RISE AND FALL OF CHEST. WILL CONTINUE TO OBSERVE PATIENT.
[2022-05-06 04:00] VITALS: BP 124/84
--- NOTE | 2022-05-06 04:50 | NUR ---
OBTAINED 0400 VITALS. VITALS WERE: BP 124/84, HR 94, O2 97, RR 18, TEMP 96.7. PATIENT WAS SLEEPING WHEN I ENTERED THE ROOM, WAKING UP BRIEFLY FOR VITALS. PATIENT QUICKLY WENT BACK TO SLEEP AFTER VITALS WERE OBTAINED. BREATHING WAS NORMAL WITH SYMMETRICAL RISE AND FALL OF CHEST. WILL CONTINUE TO OBSERVE PATIENT.
[2022-05-06 05:40] LABS: HEMATOCRIT 37.2 % (36-52); HEMOGLOBIN 12.8 g/dL (12.0-18.0); LYMPHOCYTES # (AUTO) 0.4 K/uL (2.0-11.5); LYMPHOCYTES % (AUTO) 2.5 % (20.5-51.1); MEAN CORPUSCULAR HEMOGLOBIN 32 pg (27-31); MEAN CORPUSCULAR HGB CONC 34 g/dL (33-37); MEAN CORPUSCULAR VOLUME 91.8 fL (80-94); MONOCYTES # (AUTO) 0.6 K/uL (0.8-1.0); MONOCYTES % (AUTO) 3.4 % (1.7-9.3); NEUTROPHILS # (AUTO) 15.7 K/uL (1.8-7.7); NEUTROPHILS % (AUTO) 94.1 % (42.2-75.2); PLATELET COUNT (AUTO) 190 K/uL (140-450); RED BLOOD CELL COUNT(AUTO) 4.06 MIL/uL (4.20-6.10); WHITE BLOOD COUNT (AUTO) 16.6 K/uL (4.8-10.8)
[2022-05-06 06:10] LABS: CARBON DIOXIDE 17.8 mmol/L (21-32); CREATININE 2.1 mg/dL (0.6-1.3); GLUCOSE 379 mg/dL (74-106); UREA NITROGEN, BLOOD 41 mg/dL (7-18)
[2022-05-06] MEDS: MORPHINE SULFATE 2 MG/ML SYR IVP PRN ×2 (06:27→15:15)
[2022-05-06] MEDS: BLOOD GLUCOSE MONITORING 1 DEV DEV FS SCH ×4 (06:37→21:34)
[2022-05-06 06:50] LABS: ANION GAP 16.9 (8-16); CHLORIDE 98 mmol/L (98-107); POTASSIUM 3.7 mmol/L (3.5-5.1); SODIUM SERUM 129 mmol/L (136-145)
[2022-05-06] MEDS: INSULIN LISPRO SLIDING SCALE 100 UNITS/ML VIAL SUBQ PRN ×4 (07:00→21:38)
--- NOTE | 2022-05-06 07:10 | NUR ---
ADMINISTERED 0600 IVPB ZOSYN TO PATIENT. IVPB WAS STARTED WITHOUT ANY ISSUES. PATIENT HAD VOIDED AND WAS CHANGED WITH THE ASSISTANCE OF ANA PAULA AYALA. PATIENT DID NOT HAVE A BM. PATIENT WAS CLEANED AND Z-GUARD WAS REAPPLIED. PATIENT'S BED WAS PUT BACK TO LOWEST POSITION WHEN CLEANING WAS COMPLETE. PATIENT STATED THAT HE HAD PAIN IN RIGHT SIDE 6/10. I CHECKED PATIENT'S CHART AND SAW MORPHINE WAS APPROPRIATE TO ADMINISTER. PATIENT WAS OKAY WITH MORPHINE. PATIENT TOLERATED MEDICATION WELL. OBTAINED PATIENT'S BS, BS WAS 382. ADMINISTERED 10 UNITS OF HUMALOG FOR COVERAGE PER SLIDING SCALE INTO PATIENT'S RIGHT ARM. PATIENT TOLERATED INJECTION WELL. WILL ENDORSE CARE TO DAY SHIFT NURSE.
--- NOTE | 2022-05-06 07:45 | NUR ---
ENDORSED TO DAY SHIFT NURSE CRISS FOR CONTINUITY OF CARE. PATIENT IS STABLE.
[2022-05-06 08:00] VITALS: BP 116/82
--- NOTE | 2022-05-06 08:00 | NUR ---
RECIEVED PT IN BED A/OX3 DENIES PAIN AT THIS TIME ASSESSMENT COMPLETED PLAN OF CARE REVIEWED CALL LIGHT INN REACH BREATHING EVEN AND SOMEWHAT LABORED O2 [id number]% ON ROOM AIR CALL LIGHT IN REACH WILL CONTINUE TO MONITORE AND ASSESS
[2022-05-06] MEDS: GABAPENTIN 300 MG CAP PO SCH ×3 (08:17→17:09)
[2022-05-06] MEDS: methylPREDNISolone SS 40 MG/ML VIAL IVP SCH ×2 (08:17→22:09)
[2022-05-06] MEDS: INSULIN LANTUS 100 UNITS/ML 10 ML VIAL SUBQ SCH (09:14)
[2022-05-06] MEDS ORDERED: LANTUS SUBQ (11:15)
--- NOTE | 2022-05-06 11:26 | NUR ---
PT BLOOD GLUCOSE 401MG/DL DR DOE PAGED AND MADE AWARE WITH ORDER TO GIVE 12 UNITS SQ X1 NOTED AND CARRIED OUT
[2022-05-06] MEDS ORDERED: INSULIN LISPRO 100 UNITS/ML VIAL SUBQ SCH (11:45)
[2022-05-06 12:00] VITALS: BP 117/85
[2022-05-06] MEDS: NACL 0.9% 1,000 ML IV SCH ×2 (12:22→22:22)
[2022-05-06 16:00] VITALS: BP 112/86
--- NOTE | 2022-05-06 18:33 | NUR ---
ALL NEEDS ANTICIPATED AND MET MEDICATED FOR ABDOMINAL PAIN02/06 WITH MORPHINE AND PER PT MEDICATION EFFECTIVE CALL LIGHT IN REACH
--- NOTE | 2022-05-06 19:30 | NUR ---
RECEIVED REPORT FROM DAY NURSE AND ASSUMED CARE. CHECK ON PATIENT, PATIENT WAS EATING HIS DINNER, ALERT AND ORIENTED, NO SIGNS OF PAIN/DISCOMFORT NOTED. CALL LIGHT WITHIN REACH.
[2022-05-06 20:00] VITALS: BP 116/74
--- NOTE | 2022-05-06 21:00 | NUR ---
DUE MEDICATIONS GIVEN ORDERED. SAFETY PRECAUTIONS IN PLACE. CALL LIGHT WITHIN REACH.
[2022-05-07] VITALS: BP 117/75
[2022-05-07] MEDS: PIPERACILLIN/TAZOBACTAM 3.375 GM in DEXTROSE 5% 50 ML IV SCH ×4 (00:28→17:31)
[2022-05-07] MEDS: Z-GUARD PASTE TP SCH ×2 (01:25→12:59)
[2022-05-07] MEDS: ALBUTEROL SULFATE/IPRATROPIU 3 ML SOL IH SCH ×4 (01:43→20:07)
[2022-05-07 04:00] VITALS: BP 131/78
[2022-05-07] MEDS: NACL 0.9% 1,000 ML IV SCH ×3 (04:20→20:20)
[2022-05-07 05:23] LABS: HEMATOCRIT 36.9 % (36-52); HEMOGLOBIN 12.5 g/dL (12.0-18.0); LYMPHOCYTES # (AUTO) 0.2 K/uL (2.0-11.5); LYMPHOCYTES % (AUTO) 1.4 % (20.5-51.1); MEAN CORPUSCULAR HEMOGLOBIN 32 pg (27-31); MEAN CORPUSCULAR HGB CONC 34 g/dL (33-37); MEAN CORPUSCULAR VOLUME 93.5 fL (80-94); MONOCYTES # (AUTO) 0.4 K/uL (0.8-1.0); MONOCYTES % (AUTO) 2.5 % (1.7-9.3); NEUTROPHILS # (AUTO) 16.3 K/uL (1.8-7.7); NEUTROPHILS % (AUTO) 96.1 % (42.2-75.2); PLATELET COUNT (AUTO) 169 K/uL (140-450); RED BLOOD CELL COUNT(AUTO) 3.95 MIL/uL (4.20-6.10); RED CELL DISTRIBUTION WIDTH 14.3 % (11.6-13.7)
--- NOTE | 2022-05-07 06:30 | NUR ---
PATIENT IS AWAKE, DENIES PAIN, NO SIGNS OF DISTRESS NOTED, CALL LIGHT IS WITHIN REACH. WILL CONTINUE TO MONITOR.
[2022-05-07] MEDS: BLOOD GLUCOSE MONITORING 1 DEV DEV FS SCH ×4 (06:50→20:58)
[2022-05-07] MEDS: INSULIN LISPRO SLIDING SCALE 100 UNITS/ML VIAL SUBQ PRN ×4 (06:51→21:00)
--- NOTE | 2022-05-07 07:40 | NUR ---
RECEIVED PT FROM NIGHT RN PT IS AWAKE, ALERT AND ORIENTED, ON ROOM AIR, SEATED ON THE BED WITH SIDE RAILS UP AND CALL LIGHT WITHIN REACH, SWEDISH SPEAKING, IV LINE NOTED ON THE LEFT FOREARM G. 20 WITH IVF NS INFUSING AT 125 ML/HR, NO SIGN OF DISTRESS NOTED AND WILL CONTINUE TO MONITOR PT.
[2022-05-07 08:00] VITALS: BP 120/85
[2022-05-07] MEDS: GABAPENTIN 300 MG CAP PO SCH ×3 (09:35→17:27)
[2022-05-07] MEDS: methylPREDNISolone SS 40 MG/ML VIAL IVP SCH ×2 (09:35→20:31)
[2022-05-07] MEDS: INSULIN LANTUS 100 UNITS/ML 10 ML VIAL SUBQ SCH (09:41)
--- NOTE | 2022-05-07 09:41 | NUR ---
PT WAS GIVEN THE SCHEDULED AM INSULIN, AND IVP AND ORAL MEDICATIONS
[2022-05-07 09:56] LABS: ANION GAP 20.6 (8-16); CARBON DIOXIDE 15.2 mmol/L (21-32); CHLORIDE 100 mmol/L (98-107); GLUCOSE 312 mg/dL (74-106); POTASSIUM 3.8 mmol/L (3.5-5.1); SODIUM SERUM 132 mmol/L (136-145)
[2022-05-07 09:58] LABS: CREATININE 2.9 mg/dL (0.6-1.3); UREA NITROGEN, BLOOD 49 mg/dL (7-18)
[2022-05-07 12:00] VITALS: BP 151/86
[2022-05-07] MEDS ORDERED: INSULIN LANTUS 100 UNITS/ML 10 ML VIAL SUBQ SCH (12:00)
--- NOTE | 2022-05-07 13:00 | NUR ---
DISCHARGE PLANNING PATIENT IS A 77-YEAR-OLD MALE ADMITTED IN THE [facility]/ED ON 05/01/2022 DUE TO SHORTNESS OF BREATH AND COUGH. PATIENT HAS HISTORY OF IDDM, AND COPD,(PATIENT IS AUSTRALIAN SPEAKING ONLY). SW MET WITH PATIENT AT BEDSIDE TO DISCUSS AND GATHER HIS COLLATERAL INFORMATION. PATIENT REPORTED LIVING AT HOME WITH HIS AND ADULT DAUGHTER AND GRANDDAUGHTER AT THEIR HOME IN [place] [place] [facility]. PER PATIENT HIS AND DAUGHTER MORENA OLIVO ARE HIS EMERGENCY CONTACTS AND MEDICAL DECISION MAKERS. PATIENT REPORTED NOT HAVING ADVANCE DIRECTIVES AND WAS NOT INTERESTED ON GETTING THE INF.FORMS PROVIDED BY [facility]. PATIENT REPORTED GOOD REPORT WITH HIS PCP DR.GLORIA TOLEDO, AND REPORTED THAT HIS LAST VISIT WITH HER WAS ABOUT 2 WEEKS AGO. SW DISCUSSED WITH PATIENT ABOUT THE IMPORTANCE OF MAKING A FOLLOW UP APPOINTMENT AFTER HE IS DISCHARGE FROM [facility]. PATIENT UNDERSTOOD AND AGREED; HOWEVER; DECLINED FOR SW TO MAKE HIS APPOINTMENT. STATED " MY AND DAUGHTER ARE IN CHARGE OF MY DOCTORS AND THEY WILL BE MAKING MY APPOINTMENTS FOR WHEN THEY ARE ABLE TO TAKE ME" PATIENT DECLINED FOR SW TO MAKE HIS FOLLOW UP APPOINTMENT AFTER HE IS DC FROM [facility]. PATIENT ALSO REPORTED NOT HAVING ANY ISSUES GETTING OR TAKING MEDICATIONS THAT HIS FAMILY GETS AND PICKS UP FROM THE [facility] IN [address] [place] [address] AND [facility] IN [place]. PATIENT STATED NOT HAVING OR NEEDING DME AT HOME AND REPORTED BEEN ACTIVE AND INDEPENDENT TO AMBULATE. PATIENT REPORTED TO SW THAT HE WILL BE ASSISTED BY HIS OR DAUGHTER WITH TRANSPORTATION BACK HOME WHEN HE IS READY TO DISCHARGE FROM [facility]. SW/CM WILL FOLLOW UP NEEDED.
[2022-05-07] MEDS: FLUCONAZOLE 100 MG/NS PREMIX 50 ML IV SCH (13:02)
--- NOTE | 2022-05-07 15:45 | NUR ---
PHYSICAL THERAPY EVALUATION IS BEING DONE TO PT NOW.
[2022-05-07 16:00] VITALS: BP 115/82
--- NOTE | 2022-05-07 16:07 | NUR ---
05/07/22 RD FOLLOW UP COMPLETED PLEASE REFER TO NUTRITION ASSESSMENT UNDER CARE ACTIVITY FOR ESTIMATED NUTRITIONAL NEEDS. 1. RECOMMEND DECREASING FROM CCHO60 TO CCHO45 DUE TO BLOOD GLUCOSE 312 ON 05/07/22. 2. MONITOR BLOOD GLUCOSE. 3. RD TO FOLLOW-UP 3-5 DAYS, MODERATE RISK REVIEWED BY LUCY ZAMAN RD
--- NOTE | 2022-05-07 16:55 | NUR ---
ULTRASOUND OF THE KIDNEYS IS BEING DONE TO PT NOW.
--- NOTE | 2022-05-07 19:29 | NUR ---
ENDORSED PT TO NIGHT RN FOR CONTINUITY OF CARE, PT IS STABLE AT THIS TIME, RESTING ON THE BED.
--- NOTE | 2022-05-07 19:30 | NUR ---
RECEIVED PT FROM MORNING SHIFT NURSE. PT IS AOX4, AMHARIC SPEAKING, BEDREST, ABLE TO VERBALIZE NEEDS AND ABLE TO FOLLOW COMMANDS. PT IS ON ROOM AIR AND ON CCHO DIET. PT HAS IV ON LEFT FA GAUGE 20 RUNNING WITH NS AT 125. PT SKIN IS INTACT. ALL SAFETY MEASURES IMPLEMENTED. BED IN LOW POSITION, BED WHEELS ON LOCKED AND CALL LIGHT WITHIN REACH.
[2022-05-07 20:00] VITALS: BP 116/85
--- NOTE | 2022-05-07 20:31 | NUR ---
SCHEDULED AND PRESCRIBED MEDICATION WAS GIVEN TO PT PER MD ORDER. ALL SAFETY MEASURES IMPLEMENTED. BED IN LOW POSITION, BED WHEELS ON LOCKED AND CALL LIGHT WITHIN REACH.
--- NOTE | 2022-05-07 21:00 | NUR ---
PT BLOOD GLUCOSE IS 244. HUMALOG INSULIN 4 UNITS WAS GIVEN TO PT PER MD ORDER. ALL SAFETY MEASURES IMPLEMENTED. BED IN LOW POSITION, BED WHEELS ON LOCKED AND CALL LIGHT WITHIN REACH.
[2022-05-08] VITALS: BP 117/84
--- NOTE | 2022-05-08 | NUR ---
ZOSYN 3.375 IVPB WAS GIVEN TO PT PER MD ORDER. ALL SAFETY MEASURES IMPLEMENTED. ALL SAFETY MEASURES IMPLEMENTED. BED IN LOW POSITION, BED WHEELS ON LOCKED AND CALL LIGHT WITHIN REACH.
[2022-05-08] MEDS: Z-GUARD PASTE TP SCH ×2 (01:23→13:42)
[2022-05-08] MEDS: ALBUTEROL SULFATE/IPRATROPIU 3 ML SOL IH SCH ×4 (01:44→19:40)
--- NOTE | 2022-05-08 02:00 | NUR ---
PT IS SLEEPING. CHEST RISE AND FALL SYMMETRICALLY NOTED. RESPIRATION IS EVEN AND UNLABORED. ALL SAFETY MEASURES IMPLEMENTED. BED IN LOW POSITION, BED WHEELS ON LOCKED AND CALL LIGHT WITHIN REACH.
--- NOTE | 2022-05-08 04:00 | NUR ---
PT STILL SLEEPING. CHEST RISE AND FALL SYMMETRICALLY NOTED. RESPIRATION IS EVEN AND UNLABORED. ALL SAFETY MEASURES IMPLEMENTED. BED IN LOW POSITION, BED WHEELS ON LOCKED AND CALL LIGHT WITHIN REACH.
[2022-05-08] MEDS: NACL 0.9% 1,000 ML IV SCH ×2 (04:24→11:43)
[2022-05-08 05:30] LABS: HEMATOCRIT 34.8 % (36-52); HEMOGLOBIN 11.8 g/dL (12.0-18.0); LYMPHOCYTES # (AUTO) 0.2 K/uL (2.0-11.5); LYMPHOCYTES % (AUTO) 1.7 % (20.5-51.1); MEAN CORPUSCULAR HEMOGLOBIN 31 pg (27-31); MEAN CORPUSCULAR HGB CONC 34 g/dL (33-37); MEAN CORPUSCULAR VOLUME 92.2 fL (80-94); MONOCYTES # (AUTO) 0.5 K/uL (0.8-1.0); MONOCYTES % (AUTO) 3.8 % (1.7-9.3); NEUTROPHILS # (AUTO) 13.3 K/uL (1.8-7.7); NEUTROPHILS % (AUTO) 94.5 % (42.2-75.2); PLATELET COUNT (AUTO) 160 K/uL (140-450); RED BLOOD CELL COUNT(AUTO) 3.77 MIL/uL (4.20-6.10); RED CELL DISTRIBUTION WIDTH 14.1 % (11.6-13.7); WHITE BLOOD COUNT (AUTO) 14.1 K/uL (4.8-10.8)
[2022-05-08 06:18] LABS: ANION GAP 18.2 (8-16); CARBON DIOXIDE 16.4 mmol/L (21-32); CHLORIDE 102 mmol/L (98-107); CREATININE 3.4 mg/dL (0.6-1.3); GLUCOSE 207 mg/dL (74-106); POTASSIUM 3.6 mmol/L (3.5-5.1); SODIUM SERUM 133 mmol/L (136-145); UREA NITROGEN, BLOOD 52 mg/dL (7-18)
[2022-05-08] MEDS: BLOOD GLUCOSE MONITORING 1 DEV DEV FS SCH ×4 (06:34→20:18)
[2022-05-08] MEDS: INSULIN LISPRO SLIDING SCALE 100 UNITS/ML VIAL SUBQ PRN ×3 (06:35→17:09)
--- NOTE | 2022-05-08 06:35 | NUR ---
PT BLOOD GLUCOSE IS 210. HUMALOG INSULIN 4 UNITS WAS GIVEN TO PT PER MD ORDER. ALL SAFETY MEASURES IMPLEMENTED. BED IN LOW POSITION, BED WHEELS ON LOCKED AND CALL LIGHT WITHIN REACH.
--- NOTE | 2022-05-08 07:29 | NUR ---
PT IS STABLE. ENDORSED PT TO MORNING SHIFT NURSE FOR CONTINUITY OF CARE.
--- NOTE | 2022-05-08 07:30 | NUR ---
RECEIVED REPORT FROM LINE RIDER NURSE FOR CONTINUITY OF CARE. PT IS ALERT AND ORIENTED X4, ABLE TO VERBALIZE NEEDS, ABLE TO FOLLOW COMMANDS. PT IS CZECH SPEAKING. PT RESPIRATIONS ARE EVEN AND UNLABORED ON ROOM AIR. NO SIGNS OF DISTRESS NOTED. ABD IS NONTENDER, NONDISTENDED WITH BOWEL SOUNDS PRESENT. PT IS ON CCHO DIET. PT HAS IV TO LFA 20G, WITH NS RUNNING AT 125ML/HR. SKIN IS WARM, DRY, AND INTACT. CALL LIGHT WITHIN REACH. ALL SAFETY MEASURES IN PLACE. WILL CONTINUE TO MONITOR.
[2022-05-08 08:00] VITALS: BP 117/79
[2022-05-08] MEDS ORDERED: INSULIN LANTUS 100 UNITS/ML 10 ML VIAL SUBQ SCH (09:00)
[2022-05-08] MEDS: GABAPENTIN 300 MG CAP PO SCH ×3 (09:13→17:09)
--- NOTE | 2022-05-08 09:13 | NUR ---
ADMINISTERED SCHEDULED MEDICATION. EDUCATED PT REGARDING MEDS ADMINISTERED. PT VERBALIZED UNDERSTANDING. WILL CONTINUE TO MONITOR.
--- NOTE | 2022-05-08 11:37 | NUR ---
PT BLOOD GLUCOSE WAS 210. COVERED WITH INSULIN PER SLIDING SCALE. WILL CONTINUE TO MONITOR.
--- NOTE | 2022-05-08 13:00 | NUR ---
DR MOYA ORDERED POLANCO CATHETER PLACEMENT FOR RETENTION. ATTEMPTED PLACEMENT, UNSUCCESSFUL. PT HAS PENILE AND SCROTAL SWELLING AND REDNESS. PT ALSO HAS WHITE CLUMPY MATTER INSIDE PENIS. WHEN ASKED PT REGARDING THIS WHITE MATTER, PT STATED "MARILYN HAD IT FOR A LONG TIME. GOOD LUCK GETTING THAT TUBE IN THERE. THE HOLE IS CLOGGED". ATTEMPTED ONCE AGAIN, UNSUCCESSFUL. DR DOE GAVE ORDERS FOR UROLOGY CONSULT.
[2022-05-08] MEDS: FLUCONAZOLE 100 MG/NS PREMIX 50 ML IV SCH (13:15)
--- NOTE | 2022-05-08 14:00 | NUR ---
INFORMED DR BARNETT REGARDING CONSULT. DR BARNETT MADE AWARE OF ATTEMPTS TO INSERT POLANCO. PER DR BARNETT, ATTEMPT TO INSERT 12FR WITH COUDE AND CONSULT HIM ONCE POLANCO CATHETER IS IN.
--- NOTE | 2022-05-08 14:57 | NUR ---
STAFF ABLE TO PLACE POLANCO CATHETER.
[2022-05-08 16:00] VITALS: BP 119/75
--- NOTE | 2022-05-08 17:10 | NUR ---
PT BLOOD GLUCOSE WAS 158. COVERED WITH 2 UNITS PER SLIDING SCALE.
--- NOTE | 2022-05-08 18:03 | NUR ---
INFORMED DR DOE OF WHITE COTTAGE CHEESE LIKE MATTER IN PTS PENIS AND INSIDE OF [place]. PER DR DOE, CONTINUE TO MONITOR.
--- NOTE | 2022-05-08 19:17 | NUR ---
ENDORSED PT TO FINISH PRODUCTION MANAGER NURSE FOR CONTINUITY OF CARE. PT IS STABLE.
--- NOTE | 2022-05-08 19:18 | NUR ---
RECEIVED REPORT FROM MORNING NURSE. PT IS AOX4, SOLOMON ISLANDER SPEAKING, ABLE TO VERBALIZE NEEDS AND AND ABLE TO FOLLOW COMMANDS. PT IS ON ROOM AIR AND ON CCHO DIET. PT HAS IV ON LEFT FOREARM GAUGE 20, SALINE LOCK. PT HAS SWOLLEN PENIS. PT HAS POLANCO CATHETER. ALL SAFETY MEASURES IMPLEMENTED. BED IN LOW POSITION, BED WHEELS ON LOCKED AND CALL LIGHT WITHIN REACH.
--- NOTE | 2022-05-08 20:18 | NUR ---
PT BLOOD GLUCOSE IS 140. NO INSULIN COVERAGE NEEDED. ALL SAFETY MEASURES IMPLEMENTED. BED IN LOW POSITION, BED WHEELS ON LOCKED AND CALL LIGHT WITHIN REACH.
--- NOTE | 2022-05-08 20:30 | NUR ---
PT WAS TRANSFERRED TO ROOM 107A FROM 123A. ALL PT BELONGINGS WAS WITH HIM. ALL SAFETY MEASURES IMPLEMENTED. BED IN LOW POSITION, BED WHEELS ON LOCKED AND CALL LIGHT WITHIN REACH.
--- NOTE | 2022-05-08 22:00 | NUR ---
CHANGED THE PT'S LINENS AND CLEANED THE PT DUE TO BOWEL MOVEMENT. ALL SAFETY MEASURES IMPLEMENTED. BED IN LOW POSITION, BED WHEELS ON LOCKED AND CALL LIGHT WITHIN REACH.
[2022-05-09] VITALS: BP 121/71
--- NOTE | 2022-05-09 | NUR ---
PT WAS GIVEN WARM BLANKET PER PT REQUEST. ALL SAFETY MEASURES IMPLEMENTED. BED IN LOW POSITION, BED WHEELS ON LOCKED AND CALL LIGHT WITHIN REACH.
[2022-05-09] MEDS: ALBUTEROL SULFATE/IPRATROPIU 3 ML SOL IH SCH ×3 (00:34→13:53)
[2022-05-09] MEDS: Z-GUARD PASTE TP SCH ×2 (01:18→13:02)
--- NOTE | 2022-05-09 04:00 | NUR ---
CHECKED THE PT, STILL SLEEPING. CHEST RISE AND FALL SYMMETRICALLY NOTED. RESPIRATION IS EVEN AND UNLABORED. ALL SAFETY MEASURES IMPLEMENTED. BED IN LOW POSITION, BED WHEELS ON LOCKED AND CALL LIGHT WITHIN REACH.
[2022-05-09] MEDS: BLOOD GLUCOSE MONITORING 1 DEV DEV FS SCH ×2 (06:34→11:59)
[2022-05-09] MEDS: INSULIN LISPRO SLIDING SCALE 100 UNITS/ML VIAL SUBQ PRN (06:34)
--- NOTE | 2022-05-09 06:34 | NUR ---
PT BLOOD GLUCOSE IS 153. HUMALOG INSULIN 2 UNITS WAS GIVEN TO PT PER MD ORDER. ALL SAFETY MEASURES IMPLEMENTED. BED IN LOW POSITION, BED WHEELS ON LOCKED AND CALL LIGHT WITHIN REACH.
[2022-05-09 07:02] LABS: BASOPHILS % (AUTO) 0.3 % (0.0-2.0); EOSINOPHILS # (AUTO) 0.1 K/uL (0-0.4); EOSINOPHILS % (AUTO) 0.6 % (0.0-4.0); HEMATOCRIT 33.9 % (36-52); HEMOGLOBIN 11.7 g/dL (12.0-18.0); LYMPHOCYTES # (AUTO) 0.6 K/uL (2.0-11.5); LYMPHOCYTES % (AUTO) 6.3 % (20.5-51.1); MEAN CORPUSCULAR HEMOGLOBIN 32 pg (27-31); MEAN CORPUSCULAR HGB CONC 35 g/dL (33-37); MEAN CORPUSCULAR VOLUME 92.2 fL (80-94); MONOCYTES # (AUTO) 0.9 K/uL (0.8-1.0); MONOCYTES % (AUTO) 8.9 % (1.7-9.3); NEUTROPHILS # (AUTO) 8.6 K/uL (1.8-7.7); NEUTROPHILS % (AUTO) 83.9 % (42.2-75.2); PLATELET COUNT (AUTO) 156 K/uL (140-450); RED BLOOD CELL COUNT(AUTO) 3.68 MIL/uL (4.20-6.10); RED CELL DISTRIBUTION WIDTH 14.2 % (11.6-13.7); WHITE BLOOD COUNT (AUTO) 10.3 K/uL (4.8-10.8)
[2022-05-09 07:09] LABS: ANION GAP 9.1 (8-16); CARBON DIOXIDE 23.5 mmol/L (21-32); CHLORIDE 107 mmol/L (98-107); CREATININE 1.2 mg/dL (0.6-1.3); GLUCOSE 166 mg/dL (74-106); SODIUM SERUM 137 mmol/L (136-145); UREA NITROGEN, BLOOD 28 mg/dL (7-18)
--- NOTE | 2022-05-09 07:12 | NUR ---
PT IS STABLE. ENDORSED PT TO MORNING SHIFT NURSE FOR CONTINUITY OF CARE.
[2022-05-09 07:30] LABS: POTASSIUM 2.6 mmol/L (3.5-5.1)
[2022-05-09 08:00] VITALS: BP 101/67
[2022-05-09] MEDS ORDERED: TAMSULOSIN 0.4 MG CAP PO SCH (08:30)
[2022-05-09] MEDS ORDERED: INSULIN LANTUS 100 UNITS/ML 10 ML VIAL SUBQ SCH (09:00)
--- NOTE | 2022-05-09 09:00 | NUR ---
ADMINISTERED MORNING MEDS. PT TOLERATING WELL.
[2022-05-09] MEDS: GABAPENTIN 300 MG CAP PO SCH ×3 (09:42→17:54)
[2022-05-09] MEDS ORDERED: FLUC200T PO (10:16)
--- NOTE | 2022-05-09 11:37 | NUR ---
DC PLANNING: PATIENT HAS AN ORDER TO GO HOME WITH HOME HEALTH FAXED TO [facility] AND SPOKE WITH CAROLANN BURTON AT [facility] , STATED WILL SEND IT TO THE CONTRACTED HOME HEALTH AND CALL US BACK. MICHEAL TO FOLLOW
[2022-05-09] MEDS ORDERED: POTASSIUM CHLORIDE 10 MEQ TABER PO SCH ×2 (12:30→18:00)
[2022-05-09] MEDS: FLUCONAZOLE 100 MG/NS PREMIX 50 ML IV SCH (13:00)
[2022-05-09] MEDS: KCL 20 MEQ/WATER INJ PREMIX 200 ML IV PRN (13:08)
--- NOTE | 2022-05-09 13:08 | NUR ---
ANA PAULA TILLMAN ADMINISTER IV K RIDER FOR POTASSIUM 2.6
--- NOTE | 2022-05-09 16:30 | NUR ---
PT BLOOD SUGAR 90. NO COVERAGE NEEDED PER SLIDING SCALE.
[2022-05-09 17:31] LABS: ANION GAP 8.1 (8-16); CARBON DIOXIDE 26.6 mmol/L (21-32); CHLORIDE 107 mmol/L (98-107); CREATININE 0.8 mg/dL (0.6-1.3); GLUCOSE 62 mg/dL (74-106); SODIUM SERUM 139 mmol/L (136-145); UREA NITROGEN, BLOOD 17 mg/dL (7-18)
[2022-05-09 17:41] LABS: POTASSIUM 2.7 mmol/L (3.5-5.1)
--- NOTE | 2022-05-09 17:55 | NUR ---
ADMINISTER K DUR FOR POTASSIUM LEVEL 2.7 .
--- NOTE | 2022-05-09 18:20 | NUR ---
PT WRISTBAND REMOVED. BELONGINGS GATHERED AND TAKEN. IV REMOVED. DISCHARGE PAPERS DISCUSSED WITH PT AND AT BEDSIDE. WHILE NURSE EXPLAINING DIET,PT STATES " I WANT TO EAT WHAT I WANT TO EAT". PT STATES " HE IS PICKY ". PT ADVISED TO MAKE FOLLOW UP APPOINTMENT. PT D/C WITH POLANCO IN PLACE DRAINING TO GRAVITY. EXPLAINED TO PT AND THAT CASE MANAGEMENT MAKE ARRAANGEMENT WITH [facility] TO FOLLOW UP WITH PT AT HOME. PT TAKEN ON WHEELCHAIR TO [facility]. ASSISTED PT INTO VEHICLE. PT IS STABLE. DC TO HOME.
--- NOTE | 2022-05-09 18:55 | NUR ---
ADMINISTERED K DUR FOR POTASSIUM LEVEL 2.7 Addendum: 05/09/22 at 7 by Karmen Roman LVN WRONG TIME
--- NOTE | 2022-05-10 10:24 | NUR ---
PHYSICAL THERAPY CO-SIGN The Physical Therapy Progress Notes documented by Seed Corn Production Manager have been reviewed. Reviewed/Co-Signed by: Deonna Kirk Documentation Done by: ALBIN PASCUAL PTA Addendum: 05/10/22 at 1024 by Deonna Kirk PT Amended: Links added.
--- NOTE | 2022-05-10 10:24 | NUR ---
PHYSICAL THERAPY CO-SIGN The Physical Therapy Progress Notes documented by Automotive Accessory Installer have been reviewed. Reviewed/Co-Signed by: Deonna Kirk Documentation Done by: ALBIN PASCUAL PTA Addendum: 05/10/22 at 1024 by Deonna Kirk PT Amended: Links added.
== END 2022-05-09 18:20 | disposition home or self-care (01) | DRG 871 ==
LOC: MED 13:14 → MIC 15:21 → MTU 05-03 22:20
PROVIDERS: ADMIT Family Medicine; ATTEND Family Medicine
DX: A41.9 Sepsis, unspecified organism (principal); E11.10 Type 2 diabetes mellitus with ketoacidosis without coma; J69.0 Pneumonitis due to inhalation of food and vomit; N17.0 Acute kidney failure with tubular necrosis; E44.0 Moderate protein-calorie malnutrition; J44.1 Chronic obstructive pulmonary disease with (acute) exacerbation; J44.0 Chronic obstructive pulmonary disease with (acute) lower respiratory infection; E87.1 Hypo-osmolality and hyponatremia; Z20.822 Contact with and (suspected) exposure to COVID-19; I25.10 Atherosclerotic heart disease of native coronary artery without angina pectoris; D64.9 Anemia, unspecified; E87.6 Hypokalemia; E83.51 Hypocalcemia; Z82.49 Family history of ischemic heart disease and other diseases of the circulatory system; Z79.4 Long term (current) use of insulin; Z83.3 Family history of diabetes mellitus; Z91.14 Patient's other noncompliance with medication regimen; Z91.199 Patient's noncompliance with other medical treatment and regimen due to unspecified reason; Z95.1 Presence of aortocoronary bypass graft; Z95.2 Presence of prosthetic heart valve; Z68.21 Body mass index [BMI] 21.0-21.9, adult
CPT/HCPCS: 36415; 71045; 76770; 80048; 80053; 81001; 82948; 83735; 83880; 84100; 84484; 85025; 87040; 87081; 87086; 93005; 94640; 96374; 97110; 97112; 97163-GP; 97530; 99291; J0456; J0696; J1450; J1815; J2270; J2405; J2543; J2920; J2930; J3475; J3480; J7030; J7060; J7613; Q0092

== ENCOUNTER 2022-05-11 00:51 | Emergency (ER) | payer OTHER ==
[~2022-05-11] VITALS: Ht 180.3 cm; Wt 72.6 kg
[~2022-05-11 00:51] MED LIST changes: -ASPI-1822 PO; +CODE BLUE PARTICIPANT 1 EA MISC MC ONE; -DEXT5SYR3 PO; +EPINEPHrine PFS 0.1 MG/ML SYR IVP ONE; -FLONAS NS; +FLUC200T PO; +GABA300C PO; -ISOS10TA9 PO; -METF-346 PO; -METO25TA PO; +OMEP20EC11 PO; -ORE25 PO; -POTA10TA71 PO; -VAS2.5 PO
[2022-05-11 00:52] VITALS: BP 0/0
--- NOTE | 2022-05-11 00:52 | NUR ---
PT WAS GIVEN 4 ROUNDS OF EPI, 1 BICARB AND D10
--- NOTE | 2022-05-11 00:52 | NUR ---
0045 - PT [facility] ER BED 10
--- NOTE | 2022-05-11 00:52 | NUR ---
PT BIB EMS 0045, CPR IN PROGRESS. SEE CODE BLUE SHEET. ALL CODE TEAM PRESENT, INSPECTOR HAIRSPRING TRUING PRESENT.
--- NOTE | 2022-05-11 01:08 | NUR ---
0045 FULL ARREST CAME IN BY PARAMEDICS. CPR STARTED AND BAGGING AT 100%. PT AT 0101
--- NOTE | 2022-05-11 01:09 | NUR ---
CONTACTED SOLO MUSICIAN AT [phone] SPOKE WITH ELLEN. WILL HAVE SOLO MUSICIAN CONTACT HOSPITAL FOR FURTHER QUESTIONS.
--- NOTE | 2022-05-11 01:13 | NUR ---
[facility] CONTACTED AT THIS TIME. RELEASED BY ELSA. [phone]
--- NOTE | 2022-05-11 01:15 | NUR ---
FAMILY WAS CONTACTED BY ERMDuyen AND TALKED TO DAUGHTER MARIBETH
--- NOTE | 2022-05-11 01:51 | NUR ---
SPOKE WITH FRANCES SCHWARTZ STARCH AND PROSIZE MIXER DEPUTY. ALL INFORMATION PROVIDED AT THIS TIME. WILL BE A STARCH AND PROSIZE MIXER'S CASE. STARCH AND PROSIZE MIXER WILL COME AND TAKE PT FOR AUTOPSY.
--- NOTE | 2022-05-11 02:58 | NUR ---
JOURNEYMAN CARPENTER DEPUTLukasz SCHWARTZ AT BEDSIDE.
--- NOTE | 2022-05-11 03:25 | NUR ---
CLINICAL SERVICES CONSULTANT CASE # [id number]
[2022-05-11 03:50] VITALS: BP 0/0
--- NOTE | 2022-05-11 03:50 | NUR ---
REMAINS TAKEN AND IN CARE OF NETWORK SECURITY ENGINEER FRANCES SCHWARTZ
== END 2022-05-11 01:01 ==
LOC: MED 00:51
DX: I46.9 Cardiac arrest, cause unspecified (principal); J45.909 Unspecified asthma, uncomplicated; E11.649 Type 2 diabetes mellitus with hypoglycemia without coma; J44.9 Chronic obstructive pulmonary disease, unspecified; I10 Essential (primary) hypertension; Z79.4 Long term (current) use of insulin; Z79.899 Other long term (current) drug therapy
CPT/HCPCS: 31500; 92950; 99291; J0171